=== PATIENT | female | born 1950 | race Caucasian/White ===

== ENCOUNTER 2016-10-04 22:52 | Inpatient (IN) | payer OTHER ==
[~2016-10-04] VITALS: Ht 165.1 cm; Wt 76.8 kg
[~2016-10-04 22:52] MED LIST: ACET-1175 PO; AMLO10TA4 PO; APIX1TAB3 PO; ATV/1 PO; BENZ2TAB6 PO; BISA10SU3 PR; CHOL20009 PO; CITA20TA9 PO; CLC100X PO; CRAN1CAP6 PO; DIVA125C PO; ESTCR TOP; FLUT0.0529 NAE; MAGNSUS5 PO; POLY1POW2 PO; POLY99.0 OPB; QUET1TAB34 PO; ROPI0.25 PO; SENN-61 PO; SODIENE PR; SORB1SOL2 PO; SUPPLEMENT SHAKE
[2016-10-04] MEDS ORDERED: SODIUM CHLORIDE 0.9% 1000ML 1,000 ML IV STA (23:05)
[2016-10-04] MEDS ORDERED: SODIUM CHLORIDE 0.9% 500ML 500 ML IV STA (23:05)
[2016-10-04 23:39] LABS: BASO % 0.1 %; BASO ABS # 0.01 K/uL (0-0.2); COMPLETE YES; EOS % 0.5 %; HEMATOCRIT 35.2 % (37-47); IG% 0.3 %; LYMPH % 15.9 %; LYMPH ABS # 1.37 K/uL (1.2-3.4); MEAN CELL VOLUME 89.3 fL (80-100); MEAN CORPUSCULAR HEMOGLOBIN 30.2 pg (25-34); MEAN CORPUSCULAR HGB CONC 33.8 g/dl (32-36); MEAN PLATELET VOLUME 10.7 fL (7.4-10.4); MONO % 10.4 %; NEUT % 72.8 %; PLATELET COUNT 183 K/uL (130-400); RED BLOOD COUNT 3.94 M/uL (4.2-5.4); WHITE BLOOD COUNT 8.63 K/uL (4.8-10.8)
--- NOTE | 2016-10-04 23:45 | EMERGENCY ROOM VISIT NOTE ---
ED Visit Note First contact with patient: 23:06 I have seen and examined this patient with Elin Back and generally agree with the treatment plan as discussed. Problem List Medical Problems: (1) Confusion Status: Chronic (2) COPD (chronic obstructive pulmonary disease) Status: Chronic (3) Diabetes Status: Chronic (4) GERD (gastroesophageal reflux disease) Status: Chronic (5) Hypertension Status: Chronic (6) Hypolipidemia Status: Chronic (7) Schizoaffective disorder Status: Chronic Current/Historical Medications Scheduled Amlodipine Besylate (Norvasc), 10 MG PO DAILY Apixaban (Eliquis), 5 MG PO BID Benztropine Mesylate (Benztropine Mesylate), 1 MG PO BID Cholecalciferol (Vitamin D), 2,000 INTER.UNIT PO DAILY Citalopram Hydrobromide (Celexa), 20 MG PO DAILY Cranberry (Vaccinium Macrocarp (Cranberry), 250 MG PO BID Divalproex Sodium (Depakote Sprinkle), 250 MG PO TID Docusate Sodium (Colace), 100 MG PO BID Estradiol Vaginal (Estrace), 1 APPLN TOP MWF Fluticasone Propionate (Nasal) (Flonase), 1 SPRAY HENRRY HS Lorazepam (Ativan), 1 MG PO TID Polyethylene Glycol 3350 (Bulk (Polyethylene Glycol 3350), 17 GM PO DAILY Polyvinyl Alcohol (Artificial Tears), 1 DROP OPB QID Quetiapine Fumarate (Seroquel), 100 MG PO TID Ropinirole Hydrochloride (Requip), 0.25 MG PO BID Senna (Senokot), 17.6 MG PO BID Sorbitol (Sorbitol), 30 ML PO BID [Supplement Shake], TID Scheduled PRN Acetaminophen (Tylenol), 650 MG PO Q6H PRN for Mild Pain/Elevated Temp Bisacodyl (Dulcolax), 1 SUPP NC UD PRN for Constipation Magnesium Hydroxide (Milk Of Magnesia), 30 ML PO UD PRN for Constipation Sodium Phosphate/Biphosphate (Fleet Enema), 1 EA NC UD PRN for Constipation Allergies Coded Allergies: No Known Allergies (Unverified , 06/25/16) Vital Signs Date Time Temp Pulse Resp B/P Pulse Ox O2 Delivery O2 Flow Rate FiO2 10/04/16 23:23 Room Air 10/04/16 23:05 37.1 89 24 117/66 94 Room Air Laboratory Results 10/04/16 23:20 Red Blood Count 3.94, Mean Corpuscular Volume 89.3, Mean Corpuscular Hemoglobin 30.2, Mean Corpuscular Hemoglobin Concent 33.8, Mean Platelet Volume 10.7, Neutrophils (%) (Auto) 72.8, Lymphocytes (%) (Auto) 15.9, Monocytes (%) (Auto) 10.4, Eosinophils (%) (Auto) 0.5, Basophils (%) (Auto) 0.1, Neutrophils # (Auto ) 6.28, Lymphocytes # (Auto) 1.37, Monocytes # (Auto) 0.90, Eosinophils # (Auto ) 0.04, Basophils # (Auto) 0.01 Test 10/04/16 23:05 10/04/16 23:20 10/04/16 23:25 Creatine Kinase MB Ratio (0-3.0) White Blood Count 8.63 K/uL (4.8-10.8) Red Blood Count 3.94 M/uL (4.2-5.4) Hemoglobin 11.9 g/dL (12.0-16.0) Hematocrit 35.2 % (37-47) Mean Corpuscular Volume 89.3 fL (80-100) Mean Corpuscular Hemoglobin 30.2 pg (25-34) Mean Corpuscular Hemoglobin Concent 33.8 g/dl (32-36) Platelet Count 183 K/uL (130-400) Mean Platelet Volume 10.7 fL (7.4-10.4) Neutrophils (%) (Auto) 72.8 % Lymphocytes (%) (Auto) 15.9 % Monocytes (%) (Auto) 10.4 % Eosinophils (%) (Auto) 0.5 % Basophils (%) (Auto) 0.1 % Neutrophils # (Auto) 6.28 K/uL (1.4-6.5) Lymphocytes # (Auto) 1.37 K/uL (1.2-3.4) Monocytes # (Auto) 0.90 K/uL (0.11-0.59) Eosinophils # (Auto) 0.04 K/uL (0-0.5) Basophils # (Auto) 0.01 K/uL (0-0.2) RDW Standard Deviation 46.6 fL (36.4-46.3) RDW Coefficient of Variation 14.2 % (11.5-14.5) Immature Granulocyte % (Auto) 0.3 % Immature Granulocyte # (Auto) 0.03 K/uL (0.00-0.02) Bedside Lactic Acid Venous 1.70 mmol/L (0.90-1.70) Departure Information Referrals Quinton Owens D.O. (PCP) Patient Instructions [facility]
[2016-10-04 23:49] LABS: PARTIAL THROMBOPLASTIN RATIO 1.2; PROTHROMBIN TIME (PATIENT) 11.1 SECONDS (9.0-12.0)
[2016-10-05 00:04] LABS: ALT/SGPT 13 U/L (12-78); AST/SGOT 14 U/L (15-37); BLOOD UREA NITROGEN 22 mg/dl (7-18); BUN/CREATININE RATIO 28.1 (10-20); CALCIUM 8.6 mg/dl (8.5-10.1); CARBON DIOXIDE 27 mmol/L (21-32); CHLORIDE 109 mmol/L (98-107); CREATININE 0.77 mg/dl (0.60-1.20); GLUCOSE 204 mg/dl (70-99); MAGNESIUM 2.2 mg/dl (1.8-2.4); POTASSIUM 3.6 mmol/L (3.5-5.1); SODIUM 146 mmol/L (136-145)
[2016-10-05] MEDS ORDERED: CITA10TA4 PO (00:09)
[2016-10-05] MEDS ORDERED: QUET1TAB32 PO (00:12)
[2016-10-05] MEDS ORDERED: NF406 PO (00:14)
[2016-10-05 00:15] LABS: ALB/GLOB RATIO 0.6 (0.9-2); ALKALINE PHOSPHATASE 94 U/L (45-117)
[2016-10-05] MEDS ORDERED: CRAN1TAB3 PO (00:18)
[2016-10-05] MEDS ORDERED: APIX1TAB3 PO (00:20)
[2016-10-05 01:24] LABS: MANUAL MICROSCOPIC REQUIRED? YES; URINE APPEARANCE CLOUDY (CLEAR); URINE BILIRUBIN NEG (NEG); URINE COLOR RED; URINE NITRITE NEG (NEG); UROBILINOGEN NEG (NEG)
[2016-10-05 01:44] LABS: REVIEW REQ? NO; SULFASALICYLIC ACID POS (NEG)
[2016-10-05 01:59] LABS: URINE RBC >30 /hpf (0-4)
[2016-10-05 02:07] LABS: URINE BACTERIA 4+ (NEG)
[2016-10-05 02:09] LABS: ZZURINE CULT IF INDIC CATH YES
[2016-10-05] MEDS ORDERED: CEFTRIAXONE SOD INJ 1 GM ADDVIAL IV STA (02:09)
[2016-10-05 02:23] LABS: INFLUENZA A PCR Neg for Influ A (NEG); INFLUENZA B PCR Neg for Influ B (NEG)
--- NOTE | 2016-10-05 02:44 | EMERGENCY ROOM VISIT NOTE ---
History First contact with patient: 23:06 Chief Complaint: ILLNESS Stated Complaint: AMS/SEPSIS, FR [facility] History of Present Illness The patient is a 66 year old female who presents to the Emergency Room with complaints of fever and altered mental status. Patient arrives [facility] via EMS. Patient is confused and unable to obtain history. At baseline patient is able to say yes and now. Tmax 102 at [facility] per EMS patient was given Tylenol just prior to arrival Review of Systems Unable to obtain secondary to altered mental status Past Medical/Surgical History Medical Problems: (1) Confusion (2) COPD (chronic obstructive pulmonary disease) (3) Diabetes (4) GERD (gastroesophageal reflux disease) (5) Hypertension (6) Hypolipidemia (7) Schizoaffective disorder (8) Sepsis Family History No pertinent family history Social History Smoking Status: Unknown if Ever Smoked Alcohol Use: none Drug Use: none Marital Status: Housing Status: [facility] Occupation Status: disabled Current/Historical Medications Scheduled Amlodipine Besylate (Norvasc), 10 MG PO DAILY Apixaban (Eliquis), 5 MG PO BID Benztropine Mesylate (Benztropine Mesylate), 1 MG PO BID Cholecalciferol (Vitamin D), 2,000 INTER.UNIT PO DAILY Citalopram Hydrobromide (Citalopram Hydrobromide), 5 MG PO DAILY Cranberry (Vaccinium Macrocarp (Cranberry), 450 MG PO BID Divalproex Sodium (Depakote Sprinkle), 250 MG PO TID Docusate Sodium (Colace), 100 MG PO BID Fluticasone Propionate (Nasal) (Flonase), 1 SPRAY HENRRY HS Lorazepam (Ativan), 1 MG PO TID Polyethylene Glycol 3350 (Bulk (Polyethylene Glycol 3350), 17 GM PO DAILY Polyvinyl Alcohol (Artificial Tears), 1 DROP OPB QID Quetiapine Fumarate (Seroquel), 100 MG PO BID Quetiapine Fumarate (Seroquel), 50 MG PO QAM Ropinirole Hydrochloride (Requip), 0.25 MG PO BID Senna (Senokot), 17.6 MG PO BID Sorbitol (Sorbitol), 30 ML PO DAILY [Supplement Shake], TID Scheduled PRN Acetaminophen (Tylenol), 650 MG PO Q6H PRN for Mild Pain/Elevated Temp Bisacodyl (Dulcolax), 1 SUPP CO UD PRN for Constipation Magnesium Hydroxide (Milk Of Magnesia), 30 ML PO UD PRN for Constipation Sodium Phosphate/Biphosphate (Fleet Enema), 1 EA CO UD PRN for Constipation Allergies Coded Allergies: No Known Allergies (Unverified , 06/25/16) Physical Exam Vital Signs Date Time Temp Pulse Resp B/P Pulse Ox O2 Delivery O2 Flow Rate FiO2 10/05/16 01:58 82 25 121/64 93 Room Air 10/05/16 01:28 98 26 127/66 96 Room Air 10/05/16 00:58 37.5 92 24 131/80 94 Room Air 10/05/16 00:29 82 18 133/72 93 Room Air 10/04/16 23:23 Room Air 10/04/16 23:05 89 10/04/16 23:05 37.1 89 24 117/66 94 Room Air Physical Exam VITALS: Vitals are noted on the nurse's note and reviewed by myself. Vital signs stable. GENERAL: White female sleeping arousable with sternal rub, in no acute distress , nondiaphoretic, well-developed well-nourished. SKIN: The skin was without rashes, erythema, edema, or bruising. There is no tenting of the skin. Capillary reflex less than 2 seconds. HEAD: Normocephalic atraumatic. EARS: External auditory canals clear, tympanic membranes pearly dumas without erythema or effusion bilaterally. EYES: Pupils equal round and reactive to light and accommodation. Conjunctivae without injection, sclerae without icterus. Extraocular movements intact. NOSE: Patent, turbinates without inflammation or discharge. MOUTH: Mucous membranes dry. Pharynx without erythema or exudate. Uvula midline. Airway patent. Tongue does not deviate. NECK: Supple without nuchal rigidity. No lymphadenopathy. No thyromegaly. Cervical spine is nontender. No JVD. HEART: Regular rate and rhythm LUNGS: Clear to auscultation bilaterally without wheezes, rales or rhonchi. No dullness to percussion. No retractions or accessory muscle use. ABDOMEN: Positive bowel sounds x 4. Normal tympanic percussion. Soft, nontender, without masses or organomegaly. Conte sign negative. No guarding or rebound tenderness. MUSCULOSKELETAL: No muscle atrophy, erythema, noted. NEURO: Patient was alert but not oriented to person place and time. Unable to follow commands Medical Decision & Procedures Laboratory Results 10/04/16 23:20 Red Blood Count 3.94, Mean Corpuscular Volume 89.3, Mean Corpuscular Hemoglobin 30.2, Mean Corpuscular Hemoglobin Concent 33.8, Mean Platelet Volume 10.7, Neutrophils (%) (Auto) 72.8, Lymphocytes (%) (Auto) 15.9, Monocytes (%) (Auto) 10.4, Eosinophils (%) (Auto) 0.5, Basophils (%) (Auto) 0.1, Neutrophils # (Auto ) 6.28, Lymphocytes # (Auto) 1.37, Monocytes # (Auto) 0.90, Eosinophils # (Auto ) 0.04, Basophils # (Auto) 0.01 10/04/16 23:20 Test 10/04/16 23:20 10/04/16 23:25 10/04/16 23:40 10/05/16 00:30 White Blood Count 8.63 K/uL (4.8-10.8) Red Blood Count 3.94 M/uL (4.2-5.4) Hemoglobin 11.9 g/dL (12.0-16.0) Hematocrit 35.2 % (37-47) Mean Corpuscular Volume 89.3 fL (80-100) Mean Corpuscular Hemoglobin 30.2 pg (25-34) Mean Corpuscular Hemoglobin Concent 33.8 g/dl (32-36) Platelet Count 183 K/uL (130-400) Mean Platelet Volume 10.7 fL (7.4-10.4) Neutrophils (%) (Auto) 72.8 % Lymphocytes (%) (Auto) 15.9 % Monocytes (%) (Auto) 10.4 % Eosinophils (%) (Auto) 0.5 % Basophils (%) (Auto) 0.1 % Neutrophils # (Auto) 6.28 K/uL (1.4-6.5) Lymphocytes # (Auto) 1.37 K/uL (1.2-3.4) Monocytes # (Auto) 0.90 K/uL (0.11-0.59) Eosinophils # (Auto) 0.04 K/uL (0-0.5) Basophils # (Auto) 0.01 K/uL (0-0.2) RDW Standard Deviation 46.6 fL (36.4-46.3) RDW Coefficient of Variation 14.2 % (11.5-14.5) Immature Granulocyte % (Auto) 0.3 % Immature Granulocyte # (Auto) 0.03 K/uL (0.00-0.02) Prothrombin Time 11.1 SECONDS (9.0-12.0) Prothromb Time International Ratio 1.0 (0.9-1.1) Activated Partial Thromboplast Time 31.0 SECONDS (21.0-31.0) Partial Thromboplastin Ratio 1.2 Anion Gap 10.0 mmol/L (3-11) Est Creatinine Clear Calc Drug Dose 70.5 ml/min Estimated GFR () 92.0 Estimated GFR (Non- 79.3 BUN/Creatinine Ratio 28.1 (10-20) Calcium Level 8.6 mg/dl (8.5-10.1) Magnesium Level 2.2 mg/dl (1.8-2.4) Total Bilirubin 0.3 mg/dl (0.2-1) Aspartate Amino Transf (AST/SGOT) 14 U/L (15-37) Alanine Aminotransferase (ALT/SGPT) 13 U/L (12-78) Alkaline Phosphatase 94 U/L (45-117) Total Creatine Kinase 485 U/L (26-192) Creatine Kinase MB < 0.5 ng/ml (0.5-3.6) Creatine Kinase MB Ratio (0-3.0) Troponin I < 0.015 ng/ml (0-0.045) Total Protein 6.4 gm/dl (6.4-8.2) Albumin 2.5 gm/dl (3.4-5.0) Globulin 3.9 gm/dl (2.5-4.0) Albumin/Globulin Ratio 0.6 (0.9-2) Thyroid Stimulating Hormone (TSH) 3.460 uIu/ml (0.300-4.500) Bedside Lactic Acid Venous 1.70 mmol/L (0.90-1.70) Urine Color RED Urine Appearance CLOUDY (CLEAR) Urine pH 8.0 (4.5-7.5) Urine Specific [place] 1.020 (1.000-1.030) Urine Protein 2+ (NEG) Urine Glucose (UA) NEG (NEG) Urine Ketones NEG (NEG) Urine Occult Blood 3+ (NEG) Urine Nitrite NEG (NEG) Urine Bilirubin NEG (NEG) Urine Urobilinogen NEG (NEG) Urine Leukocyte Esterase LARGE (NEG) Urine RBC >30 /hpf (0-4) Urine WBC 10-30 /hpf (0-5) Urine Epithelial Cells 10-20 /lpf (0-5) Urine Bacteria 4+ (NEG) Influenza Type A (RT-PCR) Neg for Influ A (NEG) Influenza Type B (RT-PCR) Neg for Influ B (NEG) Medications Administered Medications (Trade) Dose Ordered Sig/Emile Route Start Time Stop Time Status Last Admin Dose Admin Sodium Chloride 500 ml @ 999 mls/hr Q31M STAT IV 10/04/16 23:05 10/04/16 23:35 DC 10/04/16 23:05 999 MLS/HR Sodium Chloride (Nss 1000ml) 1,000 ml @ 125 mls/hr Q8H STAT IV 10/04/16 23:05 10/05/16 07:04 10/04/16 23:05 125 MLS/HR Ceftriaxone Sodium (Rocephin Inj) 1 gm NOW STAT IV 10/05/16 02:09 10/05/16 02:10 DC 10/05/16 02:25 1 GM ED Course Prior records/ancillary studies reviewed and summarized above. Nursing notes reviewed. Additional history obtained from EMS. The patient's history was concerning for altered mental status. Differential diagnosis: Etiologies such as metabolic, infection, hypoglycemia, electrolyte abnormalities , cardiac sources, intracerebral event, toxicologic, neurologic, as well as others were entertained. Physical examination: As above. ER treatment provided: IV Lock Normal saline hydration. rocephine On reassessment the patients mental status improved. Diagnostics interpretation by me: ECG: Normal sinus, normal intervals, no acute ST-T wave changes. Impression normal sinus rhythm interpreted by myself The labs revealed no leukocytosis. Urine concerning for infection and sent for culture. Prior urine culture reviewed and is sensitive to Rocephin Imaging studies: Head CT with no intracranial bleed per stat radiology Chest x-ray with no acute consolidation, pneumothorax or free air per my interpretation Given the above diagnostic work-up and treatment, this episode appears to be consistent with UTI and altered mental status.. Further treatment will be required. She was started on antibiotics. She is more confused than baseline. She is unable to answer questions. She'll be evaluated by medicine for possible admission Consultation: A consultation was placed with Dr Barrera, hospitalist. The case was discussed and diagnostics were reviewed. The patient was evaluated in the ER for further treatment. case reviewed with my Attending. Medical Decision As above Impression Primary Impression: UTI (urinary tract infection) Additional Impression: Altered mental status Departure Information Dispostion Being Evaluated By Hospitalist Condition FAIR Referrals Quinton Owens D.O. (PCP) Patient Instructions [facility] Problem Qualifiers Primary Impression: UTI (urinary tract infection) Urinary tract infection type: acute cystitis Hematuria presence: with hematuria Qualified Codes: N30.01 - Acute cystitis with hematuria Additional Impression: Altered mental status Altered mental status type: unspecified Qualified Codes: R41.82 - Altered mental status, unspecified
[2016-10-05] MEDS ORDERED: FLUT0.15 NAE (02:56)
[2016-10-05] MEDS ORDERED: DOCU-94 PO (02:57)
[2016-10-05] MEDS ORDERED: ALUMINUM/MAGNESIUM/SIMETH (MAALOX MAX) 30 ML UDC PO PRN (06:30)
[2016-10-05] MEDS ORDERED: ONDANSETRON INJ 2 MG/ML 2 ML VIAL IV PRN (06:30)
[2016-10-05] MEDS ORDERED: ACETAMINOPHEN 325 MG TAB PO PRN (06:30)
[2016-10-05] MEDS ORDERED: MAGNESIUM HYDROXIDE SUSP 30 ML UDC PO PRN (06:30)
[2016-10-05] MEDS ORDERED: POLYETHYLENE (MIRALAX) 17 GM PACK PO PRN (06:30)
[2016-10-05] MEDS ORDERED: BISACODYL 10 MG SUPP PR PRN (06:30)
--- NOTE | 2016-10-05 06:36 | DIAGNOSTIC IMAGING REPORT ---
CHEST ONE VIEW PORTABLE CLINICAL HISTORY: Sepsis ALTERED MENTAL STATUS COMPARISON STUDY: 06/25/2016 FINDINGS: The cardiomediastinal contours remain stable. There are calcified hilar/mediastinal lymph nodes. There is a calcified left lower lobe granuloma. There is mild basilar interstitial thickening, unchanged from the prior study. There is no acute parenchymal consolidation. There is no failure. There are no pleural effusions.[ IMPRESSION: No active disease in the chest. Electronically signed by: Rohith Rocha M.D. 10/05/2016 6:34 AM Dictated Date/Time: 10/05/2016 6:33 AM
--- NOTE | 2016-10-05 06:54 | History and Physical ---
History & Physical Date & Time of Service: Oct 05, 2016 at 06:34 Chief Complaint: Ams/Sepsis, Fr [facility] Primary Care Physician: Quinton Owens D.O. History of Present Illness Source: patient 66 y/o F w/Hx Schizoaffective disorder, dementia, recurrent UTIs, DM2 - presents from a care facility where she was noted to be febrile and progressively lethargic and confused. She cannot contribute to the HPI meaningfully however she showed some improvement after receiving fluids and antibiotics in the ER. Her UA is strongly (+). She was recently admitted with a similar presentation 06/29. 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 10) CKD 1 11) Recurrent UTIs - urosepsis 06/29 Family History No pertinent family history Cannot obtain Social History Smoking Status: Unknown if Ever Smoked Drug Use: none Marital Status: Housing status: [facility] Occupational Status: disabled Immunizations History of Influenza Vaccine: Yes Influenza Vaccine Date: Jun 24, 2012 History of Tetanus Vaccine?: Unknown History of Pneumococcal: Yes History of Hepatitis B Vaccine: No Multi-Drug Resistant Organisms History of MDRO: Yes Type of MDRO: MRSA Allergies Coded Allergies: No Known Allergies (Unverified , 06/25/16) Home Medications Scheduled Amlodipine Besylate (Norvasc), 10 MG PO DAILY Apixaban (Eliquis), 5 MG PO BID Benztropine Mesylate (Benztropine Mesylate), 1 MG PO BID Cholecalciferol (Vitamin D), 2,000 INTER.UNIT PO DAILY Citalopram Hydrobromide (Citalopram Hydrobromide), 5 MG PO DAILY Cranberry (Vaccinium Macrocarp (Cranberry), 450 MG PO BID Divalproex Sodium (Depakote Sprinkle), 250 MG PO TID Docusate Sodium (Colace), 100 MG PO BID Fluticasone Propionate (Nasal) (Flonase Allergy Relief), 1 SPRAY HENRRY HS Lorazepam (Ativan), 1 MG PO TID Polyethylene Glycol 3350 (Bulk (Polyethylene Glycol 3350), 17 GM PO DAILY Polyvinyl Alcohol (Artificial Tears), 1 DROP OPB QID Quetiapine Fumarate (Seroquel), 100 MG PO BID Quetiapine Fumarate (Seroquel), 50 MG PO QAM Ropinirole Hydrochloride (Requip), 0.25 MG PO BID Senna (Senokot), 17.6 MG PO BID Sorbitol (Sorbitol), 30 ML PO DAILY [Supplement Shake], TID Scheduled PRN Acetaminophen (Tylenol), 650 MG PO Q6H PRN for Mild Pain/Elevated Temp Bisacodyl (Dulcolax), 1 SUPP MS UD PRN for Constipation Sodium Phosphate/Biphosphate (Fleet Enema), 1 EA MS UD PRN for Constipation Review of Systems Cannot obtain meaningful information - denies all symptoms - presentation as per HPI Physical Exam Vital Signs Date Time Temp Pulse Resp B/P Pulse Ox O2 Delivery O2 Flow Rate FiO2 10/05/16 05:59 78 25 147/68 93 Room Air 10/05/16 05:28 83 26 101/76 95 Room Air 10/05/16 04:58 81 23 146/71 95 Room Air 10/05/16 04:30 82 20 136/70 94 Room Air 10/05/16 03:58 85 25 144/69 92 Room Air 10/05/16 03:55 81 23 143/73 93 Room Air 10/05/16 03:00 83 10/05/16 02:28 85 24 124/74 93 Room Air 10/05/16 01:58 82 25 121/64 93 Room Air 10/05/16 01:28 98 26 127/66 96 Room Air 10/05/16 00:58 37.5 92 24 131/80 94 Room Air 10/05/16 00:29 82 18 133/72 93 Room Air 10/04/16 23:23 Room Air 10/04/16 23:05 89 10/04/16 23:05 37.1 89 24 117/66 94 Room Air General Appearance: no apparent distress, + pertinent finding (Confused elderly female - cooperative and in no distress) Head: normocephalic, atraumatic Eyes: normal inspection ENT: pharynx normal, + pertinent finding (Does not have any teeth) Neck: supple, no JVD Respiratory/Chest: chest non-tender, lungs clear, normal breath sounds Cardiovascular: regular rate, rhythm, no gallop, no JVD Abdomen/GI: normal bowel sounds, non tender, soft Back: normal inspection, no CVA tenderness Extremities/Musculoskelatal: + pertinent finding (Venous staiss changes and mild LE edema) Neurologic/Psych: + pertinent finding (She is disoriented but can obey simple commands and does not exhibut any obvious focal defecits) Skin: normal color, warm/dry, no rash Diagnostics Laboratory Results Results Past 24 Hours Test 10/04/16 23:20 10/04/16 23:25 10/04/16 23:40 10/05/16 00:30 Range/Units White Blood Count 8.63 4.8-10.8 K/uL Red Blood Count 3.94 4.2-5.4 M/uL Hemoglobin 11.9 12.0-16.0 g/dL Hematocrit 35.2 37-47 % Mean Corpuscular Volume 89.3 80-100 fL Mean Corpuscular Hemoglobin 30.2 25-34 pg Mean Corpuscular Hemoglobin Concent 33.8 32-36 g/dl Platelet Count 183 130-400 K/uL Mean Platelet Volume 10.7 7.4-10.4 fL Neutrophils (%) (Auto) 72.8 % Lymphocytes (%) (Auto) 15.9 % Monocytes (%) (Auto) 10.4 % Eosinophils (%) (Auto) 0.5 % Basophils (%) (Auto) 0.1 % Neutrophils # (Auto) 6.28 1.4-6.5 K/uL Lymphocytes # (Auto) 1.37 1.2-3.4 K/uL Monocytes # (Auto) 0.90 0.11-0.59 K/uL Eosinophils # (Auto) 0.04 0-0.5 K/uL Basophils # (Auto) 0.01 0-0.2 K/uL RDW Standard Deviation 46.6 36.4-46.3 fL RDW Coefficient of Variation 14.2 11.5-14.5 % Immature Granulocyte % (Auto) 0.3 % Immature Granulocyte # (Auto) 0.03 0.00-0.02 K/uL Prothrombin Time 11.1 9.0-12.0 SECONDS Prothromb Time International Ratio 1.0 0.9-1.1 Activated Partial Thromboplast Time 31.0 21.0-31.0 SECONDS Partial Thromboplastin Ratio 1.2 Sodium Level 146 136-145 mmol/L Potassium Level 3.6 3.5-5.1 mmol/L Chloride Level 109 98-107 mmol/L Carbon Dioxide Level 27 21-32 mmol/L Anion Gap 10.0 3-11 mmol/L Blood Urea Nitrogen 22 7-18 mg/dl Creatinine 0.77 0.60-1.20 mg/dl Est Creatinine Clear Calc Drug Dose 70.5 ml/min Estimated GFR () 92.0 Estimated GFR (Non- 79.3 BUN/Creatinine Ratio 28.1 10-20 Random Glucose 204 70-99 mg/dl Calcium Level 8.6 8.5-10.1 mg/dl Magnesium Level 2.2 1.8-2.4 mg/dl Total Bilirubin 0.3 0.2-1 mg/dl Aspartate Amino Transf (AST/SGOT) 14 15-37 U/L Alanine Aminotransferase (ALT/SGPT) 13 12-78 U/L Alkaline Phosphatase 94 45-117 U/L Total Creatine Kinase 485 26-192 U/L Creatine Kinase MB < 0.5 0.5-3.6 ng/ml Creatine Kinase MB Ratio 0-3.0 Troponin I < 0.015 0-0.045 ng/ml Total Protein 6.4 6.4-8.2 gm/dl Albumin 2.5 3.4-5.0 gm/dl Globulin 3.9 2.5-4.0 gm/dl Albumin/Globulin Ratio 0.6 0.9-2 Thyroid Stimulating Hormone (TSH) 3.460 0.300-4.500 uIu/ml Bedside Lactic Acid Venous 1.70 0.90-1.70 mmol/L Urine Color RED Urine Appearance CLOUDY CLEAR Urine pH 8.0 4.5-7.5 Urine Specific [place] 1.020 1.000-1.030 Urine Protein 2+ NEG Urine Glucose (UA) NEG NEG Urine Ketones NEG NEG Urine Occult Blood 3+ NEG Urine Nitrite NEG NEG Urine Bilirubin NEG NEG Urine Urobilinogen NEG NEG Urine Leukocyte Esterase LARGE NEG Urine RBC >30 0-4 /hpf Urine WBC 10-30 0-5 /hpf Urine Epithelial Cells 10-20 0-5 /lpf Urine Bacteria 4+ NEG Influenza Type A (RT-PCR) Neg for Influ A NEG Influenza Type B (RT-PCR) Neg for Influ B NEG Test 10/05/16 03:55 Range/Units Valproic Acid (Depakene) Level 53 50-100 mcg/ml Microbiology Results 10/04/16 Blood Culture, Received Pending 10/04/16 Blood Culture, Received Pending 10/04/16 Urine Culture, Received Pending EKG Sinus - ant and inf Q wvs present - no evidence of acute ischemia Impression Assessment and Plan 66 y/o F w/Hx Schizoaffective disorder, dementia, recurrent UTIs, DM2 - presents from a care facility where she was noted to be febrile and progressively lethargic and confused. She cannot contribute to the HPI meaningfully however she showed some improvement after receiving fluids and antibiotics in the ER. Her UA is strongly (+). 1) UTI with AMS - showing improvement after IVF - Pt will be treated with Cefepime pending culture results as she was recently treated for a UTI in hospital and we do not have recent ID of offending organism. Spectrum can be narrowed accordingly when results are available. Cont IVF. 2) Dementia - Schizoaffective disorder - will be monitored on telemetry until mental status improves - cont psychoactive meds 3) DM - SS 4) COPD - breathing treatments continued - no evidence of exacerbation 5) Hx DVTs - cont Apixaban 6) Parkinsonism - cont Ropinirole 7) HTN - cont Norvasc DNR - Apixaban prophylaxis total time for this admit including review of outpt records, labs, meds, ekg - discussion with Pt and ER attending - 39 min Level of Care Telemetry Resuscitation Status DO NOT RESUSCITATE VTE Prophylaxis VTE Risk Assessment Done? Y/N: Yes Risk Level: Moderate Given or contraindicated: Other Anticoagulation
--- NOTE | 2016-10-05 07:24 | DIAGNOSTIC IMAGING REPORT ---
CT HEAD WITHOUT CONTRAST (CT) CLINICAL HISTORY: Acute change in mental status. Sepsis. COMPARISON STUDY: 04/27/2015 TECHNIQUE: Axial CT of the brain is performed from the vertex to the skull base. IV contrast was not administered for this examination. CT DOSE: 614.27 mGy.cm FINDINGS: No intra or extra-axial mass lesions are visualized. There is no CT evidence of acute cortical infarction. There is no evidence of midline shift. There is no acute hemorrhage. No calvarial fractures are visualized. There are patchy white matter hypodensities likely on a small vessel basis. There is mild ventricular dilatation, similar to the preceding study. There is no evidence of acute sinusitis IMPRESSION: 1. No acute intracranial findings 2. White matter disease and stable mild ventriculomegaly Electronically signed by: Rohith Rocha M.D. 10/05/2016 7:22 AM Dictated Date/Time: 10/05/2016 7:21 AM
[2016-10-05 07:30] VITALS: BP 144/97; PULSE 89; TEMP 36.8; O2SAT 94; Ht 165.1 cm; Wt 76.8 kg
[2016-10-05] MEDS ORDERED: GLUCAGON FOR INJ 1 MG VIAL SQ PRN (07:30)
[2016-10-05] MEDS ORDERED: GLUCOSE 10 TABS/TUBE PO PRN (07:30)
[2016-10-05] MEDS ORDERED: GLUCOSE 40% GEL 15 GM TUBE PO PRN (07:30)
[2016-10-05] MEDS ORDERED: DEXTROSE 50% 50 ML SYR IV PRN (07:30)
[2016-10-05 08:00] VITALS: BP 129/72; PULSE 92; TEMP 36.8; O2SAT 93
[2016-10-05] MEDS: INSULIN ASPART 100 UNITS/ML 3 ML PEN SC SCH ×4 (08:32→20:24)
[2016-10-05] MEDS: NSS + 20MEQ KCL 1000ML 1,000 ML IV SCH ×2 (08:33→15:57)
[2016-10-05] MEDS: CEFEPIME IV 1,000 MG in DEXTROSE 5% 100ML 100 ML IV SCH ×3 (10:04→23:28)
[2016-10-05] MEDS: ARTIFICIAL TEARS OP SOLN OPB SCH ×8 (10:04→20:24)
[2016-10-05] MEDS: CITALOPRAM 20 MG TAB PO SCH (10:05)
[2016-10-05] MEDS: DOCUSATE SODIUM 100 MG CAP PO SCH ×2 (10:05→20:21)
[2016-10-05] MEDS: AMLODIPINE BESYLATE 5 MG TAB PO SCH (10:06)
[2016-10-05] MEDS: APIXABAN 2.5 MG TAB PO SCH ×2 (10:06→20:22)
[2016-10-05] MEDS: DIVALPROEX SODIUM SPRINKLE 125 MG CAP PO SCH ×3 (10:06→20:19)
[2016-10-05] MEDS: QUETIAPINE FUMARATE 25 MG TAB PO SCH (10:07)
[2016-10-05] MEDS: SENNA 8.6 MG TAB PO SCH ×2 (10:07→20:21)
[2016-10-05] MEDS: CHOLECALCIFEROL 1000 INTER.UNIT TAB PO SCH (10:07)
[2016-10-05] MEDS: ROPINIROLE HCL 0.25 MG TAB PO SCH ×2 (10:07→20:19)
[2016-10-05] MEDS: BENZTROPINE MESYLATE 1 MG TAB PO SCH ×2 (10:08→20:23)
[2016-10-05] MEDS: LORAZEPAM 1 MG TAB PO SCH ×3 (10:09→20:18)
[2016-10-05 12:00] VITALS: BP 129/58; PULSE 91; TEMP 36.6; O2SAT 98
[2016-10-05] MEDS: QUETIAPINE FUMARATE 100 MG TAB PO SCH ×2 (15:57→20:20)
[2016-10-05 16:00] VITALS: BP 127/73; PULSE 81; TEMP 36.5; O2SAT 100
[2016-10-05 19:33] VITALS: BP 143/60; PULSE 89; O2SAT 99
[2016-10-05] MEDS: FLUTICASONE PROPIONATE NA SPR 16 GM BTL NAE SCH (20:24)
[2016-10-06] VITALS (8 sets, daily range): BP systolic 102–135; BP diastolic 53–82; PULSE 73–84; TEMP 36.3–36.9; O2SAT 96–99
[2016-10-06 06:39] LABS: BASO % 0.4 %; BASO ABS # 0.02 K/uL (0-0.2); COMPLETE YES; EOS % 4.5 %; HEMATOCRIT 31.9 % (37-47); IG% 0.2 %; LYMPH % 29.7 %; LYMPH ABS # 1.33 K/uL (1.2-3.4); MEAN CELL VOLUME 91.9 fL (80-100); MEAN CORPUSCULAR HGB CONC 32.6 g/dl (32-36); MEAN PLATELET VOLUME 10.6 fL (7.4-10.4); MONO % 12.1 %; NEUT % 53.1 %; PLATELET COUNT 154 K/uL (130-400); RED BLOOD COUNT 3.47 M/uL (4.2-5.4); WHITE BLOOD COUNT 4.48 K/uL (4.8-10.8)
[2016-10-06] MEDS: INSULIN ASPART 100 UNITS/ML 3 ML PEN SC SCH ×4 (07:00→20:27)
[2016-10-06 07:20] LABS: ALKALINE PHOSPHATASE 70 U/L (45-117); ALT/SGPT 11 U/L (12-78); AST/SGOT 8 U/L (15-37); BLOOD UREA NITROGEN 15 mg/dl (7-18); BUN/CREATININE RATIO 31.8 (10-20); CALCIUM 8.4 mg/dl (8.5-10.1); CARBON DIOXIDE 28 mmol/L (21-32); CHLORIDE 115 mmol/L (98-107); CREATININE 0.46 mg/dl (0.60-1.20); GLUCOSE 104 mg/dl (70-99); POTASSIUM 3.9 mmol/L (3.5-5.1); SODIUM 151 mmol/L (136-145)
--- NOTE | 2016-10-06 07:25 | Medical Student: [facility] ---
Med Student Progress Note Date of Service Oct 06, 2016. Subjective Pt evaluation today including: physical exam, chart review, lab review, review of studies Pt is a 66 year old female with a history of Schizoaffective disorder, Parkinson 's disease, dementia, and recurrent UTIs who is admitted for increased lethargy and confusion in the setting of a UTI. She remains disoriented and is not able to contribute any history. ROS is unobtainable secondary to her altered mental status and dementia. Home Medications Scheduled Amlodipine Besylate (Norvasc), 10 MG PO DAILY Apixaban (Eliquis), 5 MG PO BID Benztropine Mesylate (Benztropine Mesylate), 1 MG PO BID Cholecalciferol (Vitamin D), 2,000 INTER.UNIT PO DAILY Citalopram Hydrobromide (Citalopram Hydrobromide), 5 MG PO DAILY Cranberry (Vaccinium Macrocarp (Cranberry), 450 MG PO BID Divalproex Sodium (Depakote Sprinkle), 250 MG PO TID Docusate Sodium (Colace), 100 MG PO BID Fluticasone Propionate (Nasal) (Flonase Allergy Relief), 1 SPRAY HENRRY HS Lorazepam (Ativan), 1 MG PO TID Polyethylene Glycol 3350 (Bulk (Polyethylene Glycol 3350), 17 GM PO DAILY Polyvinyl Alcohol (Artificial Tears), 1 DROP OPB QID Quetiapine Fumarate (Seroquel), 100 MG PO BID Quetiapine Fumarate (Seroquel), 50 MG PO QAM Ropinirole Hydrochloride (Requip), 0.25 MG PO BID Senna (Senokot), 17.6 MG PO BID Sorbitol (Sorbitol), 30 ML PO DAILY [Supplement Shake], TID Scheduled PRN Acetaminophen (Tylenol), 650 MG PO Q6H PRN for Mild Pain/Elevated Temp Bisacodyl (Dulcolax), 1 SUPP [place] UD PRN for Constipation Sodium Phosphate/Biphosphate (Fleet Enema), 1 EA [place] UD PRN for Constipation Objective Vital Signs Date Time Temp Pulse Resp B/P Pulse Ox O2 Delivery O2 Flow Rate FiO2 10/06/16 04:00 Room Air 10/06/16 03:27 36.9 73 20 112/54 96 Room Air 10/06/16 00:25 36.4 76 22 102/56 98 Room Air 10/06/16 00:00 Room Air 10/05/16 20:00 Room Air 10/05/16 19:33 89 18 143/60 99 10/05/16 16:00 36.5 81 20 127/73 100 Room Air 10/05/16 16:00 Room Air 10/05/16 12:00 36.6 91 22 129/58 98 Room Air 10/05/16 12:00 Room Air 10/05/16 08:00 36.8 92 22 129/72 93 Room Air 10/05/16 08:00 Room Air 10/05/16 07:30 36.8 89 22 144/97 94 Room Air Physical Exam General Appearance: + pertinent finding (Elderly sleeping comfortably in bed, awakens to voice. Appears in no acute distress. Only oriented to person. Unable to follow simple commands. ) Eyes: bilateral eyes PERRL, bilateral eyes normal inspection ENT: + pertinent finding (Dry mucous membranes. Edentulous. ) Neck: no JVD, no carotid bruits, trachea midline Respiratory/Chest: lungs clear, normal breath sounds, no respiratory distress, no accessory muscle use Cardiovascular: regular rate, rhythm, no edema, no gallop, no JVD, no murmur Abdomen: normal bowel sounds, non tender, soft Extremities: no pedal edema, no calf tenderness, normal capillary refill, + pertinent finding (Chronic venous stasis changes of bilateral lower extremities. ) Neurologic/Psychiatric: alert, + disoriented, + pertinent finding (Oriented x 1. Unable to follow simple commands. No obvious focal deficits. ) Skin: normal color, no rash Laboratory Results Last 24 Hours Test 10/05/16 08:30 10/05/16 12:13 10/05/16 15:55 10/05/16 20:23 Bedside Glucose 142 mg/dl 141 mg/dl 125 mg/dl 124 mg/dl Test 10/06/16 06:07 10/06/16 07:03 White Blood Count 4.48 K/uL Red Blood Count 3.47 M/uL Hemoglobin 10.4 g/dL Hematocrit 31.9 % Mean Corpuscular Volume 91.9 fL Mean Corpuscular Hemoglobin 30.0 pg Mean Corpuscular Hemoglobin Concent 32.6 g/dl Platelet Count 154 K/uL Mean Platelet Volume 10.6 fL Neutrophils (%) (Auto) 53.1 % Lymphocytes (%) (Auto) 29.7 % Monocytes (%) (Auto) 12.1 % Eosinophils (%) (Auto) 4.5 % Basophils (%) (Auto) 0.4 % Neutrophils # (Auto) 2.38 K/uL Lymphocytes # (Auto) 1.33 K/uL Monocytes # (Auto) 0.54 K/uL Eosinophils # (Auto) 0.20 K/uL Basophils # (Auto) 0.02 K/uL RDW Standard Deviation 47.6 fL RDW Coefficient of Variation 14.3 % Immature Granulocyte % (Auto) 0.2 % Immature Granulocyte # (Auto) 0.01 K/uL Sodium Level 151 mmol/L Potassium Level 3.9 mmol/L Chloride Level 115 mmol/L Carbon Dioxide Level 28 mmol/L Anion Gap 8.0 mmol/L Blood Urea Nitrogen 15 mg/dl Creatinine 0.46 mg/dl Est Creatinine Clear Calc Drug Dose 120.0 ml/min Estimated GFR () 118.5 Estimated GFR (Non- 102.2 BUN/Creatinine Ratio 31.8 Random Glucose 104 mg/dl Calcium Level 8.4 mg/dl Magnesium Level 2.0 mg/dl Total Bilirubin 0.3 mg/dl Direct Bilirubin < 0.1 mg/dl Aspartate Amino Transf (AST/SGOT) 8 U/L Alanine Aminotransferase (ALT/SGPT) 11 U/L Alkaline Phosphatase 70 U/L Total Protein 5.5 gm/dl Albumin 2.0 gm/dl Bedside Glucose 101 mg/dl Medications Medications Administered Medications (Trade) Dose Ordered Sig/Emile Route Start Time Stop Time Status Last Admin Dose Admin Sodium Chloride 500 ml @ 999 mls/hr Q31M STAT IV 10/04/16 23:05 10/04/16 23:35 DC 10/04/16 23:05 999 MLS/HR Sodium Chloride (Nss 1000ml) 1,000 ml @ 125 mls/hr Q8H STAT IV 10/04/16 23:05 10/05/16 07:04 DC 10/04/16 23:05 125 MLS/HR Ceftriaxone Sodium 1 gm 1 gm NOW STAT IV 10/05/16 02:09 10/05/16 02:10 DC 10/05/16 02:25 1 GM Cefepime HCl/ Dextrose (Maxipime IV/D5 100ml) 106.25 ml @ 200 mls/ hr Q8H IV 10/05/16 08:00 10/15/16 07:44 10/05/16 23:28 200 MLS/HR Amlodipine Besylate (Norvasc Tab) 10 mg DAILY PO 10/05/16 09:00 11/04/16 08:59 10/05/16 10:06 10 MG Divalproex Sodium (Depakote Sprinkle Cap) 250 mg TID PO 10/05/16 09:00 11/04/16 08:59 10/05/16 20:19 250 MG Docusate Sodium (coLACE CAP) 100 mg BID PO 10/05/16 09:00 11/04/16 08:59 10/05/16 10:05 100 MG Fluticasone Propionate (Flonase Nasal [place]) 2 sprays HS HENRRY 10/05/16 21:00 11/04/16 20:59 10/05/16 20:24 2 SPRAYS Lorazepam (Ativan Tab) 1 mg TID PO 10/05/16 09:00 11/04/16 08:59 10/05/16 20:18 1 MG Quetiapine Fumarate (seroQUEL TAB) 50 mg QAM PO 10/05/16 09:00 11/04/16 08:59 10/05/16 10:07 50 MG Quetiapine Fumarate (seroQUEL TAB) 100 mg BID@1700,2100 PO 10/05/16 17:00 11/04/16 16:59 10/05/16 20:20 100 MG Ropinirole HCl (Requip Tab) 0.25 mg BID PO 10/05/16 09:00 11/04/16 08:59 10/05/16 20:19 0.25 MG Senna (Senokot Tab) 17.2 mg BID PO 10/05/16 09:00 11/04/16 08:59 10/05/16 20:21 17.2 MG Apixaban (Eliquis Tab) 5 mg BID PO 10/05/16 09:00 11/04/16 08:59 10/05/16 20:22 5 MG Benztropine Mesylate (Cogentin Tab) 1 mg BID PO 10/05/16 09:00 11/04/16 08:59 10/05/16 20:23 1 MG Cholecalciferol (Vitamin D Tab) 2,000 inter.unit DAILY PO 10/05/16 09:00 11/04/16 08:59 10/05/16 10:07 2,000 INTER.UNIT Citalopram Hydrobromide (celeXA TAB) 5 mg DAILY PO 10/05/16 09:00 11/04/16 08:59 10/05/16 10:05 5 MG Artificial Tears 1 drops 1 drops QID OPB 10/05/16 09:00 11/04/16 08:59 10/05/16 20:24 1 DROPS Potassium Chloride/Sodium Chloride (Nss + 20meq KCl 1000ml) 1,000 ml @ 100 mls/hr Q10H IV 10/05/16 08:00 10/06/16 03:59 DC 10/05/16 15:57 100 MLS/HR Assessment and Plan Assessment and Plan: Pt is a 66 year old female with a history of Schizoaffective disorder, Parkinson 's disease, dementia, and recurrent UTIs who is admitted for increased lethargy and confusion in the setting of a UTI. UTI/AMS - UA with evidence of infection, which is the likely source of her AMS. Urine cultures are positive for gram negative bacilli, most likely representing E. coli, although Pseudomonas is also considered given recent admission and she lives in care facility. She has a history of staghorn calculi on abd/pelvis CT from 02/13/16, but UA is negative for nitrites, making Proteus UTI less likely. No leukocytosis or fever, and normal lactic acid, so no evidence to suggest urosepsis at this point. Head CT showed white matter changes and stable mild ventriculomegaly, no acute findings. CXR showed no acute findings. - Continue Cefepime IV. - Continue to monitor daily CBC. - Blood cultures are pending. Hypernatremia - Na of 151, increased from 146 on admission. This could be secondary to the 1.5 L IVF. - Will transition the pt to oral fluids and recheck BMP daily. Schizoaffective disorder - Continue normal medications, including Depakote, citalopram, and quetiapine. - Will consider weaning the pt off of lorazepam 1 mg tid, as it could be contributing to her AMS. History of Type II DM - Last HbA1C was 5.9, and the pt is not currently on any antihyperglycemics. - Will continue to monitor blood sugar. - No need for insulin sliding scale at this time. Parkinson's disease - Continue Ropinirole and Benztropine. HTN - BP has been stable in the 100-140s/ 50-70s. Continue normal dose of Norvasc. DVT prophylaxis - Continue usual dose of apixaban 5 mg bid, which she is on for a Hx of DVT.
[2016-10-06] MEDS: LORAZEPAM 1 MG TAB PO SCH ×3 (09:00→19:49)
[2016-10-06] MEDS: ARTIFICIAL TEARS OP SOLN OPB SCH ×8 (09:12→19:49)
[2016-10-06] MEDS: AMLODIPINE BESYLATE 5 MG TAB PO SCH (09:12)
[2016-10-06] MEDS: BENZTROPINE MESYLATE 1 MG TAB PO SCH ×2 (09:12→19:49)
[2016-10-06] MEDS: QUETIAPINE FUMARATE 25 MG TAB PO SCH (09:13)
[2016-10-06] MEDS: CITALOPRAM 20 MG TAB PO SCH (09:13)
[2016-10-06] MEDS: ROPINIROLE HCL 0.25 MG TAB PO SCH ×2 (09:13→19:49)
[2016-10-06] MEDS: DOCUSATE SODIUM 100 MG CAP PO SCH ×2 (09:15→19:49)
[2016-10-06] MEDS: APIXABAN 2.5 MG TAB PO SCH ×2 (09:15→19:48)
[2016-10-06] MEDS: SENNA 8.6 MG TAB PO SCH ×2 (09:15→19:49)
[2016-10-06] MEDS: CHOLECALCIFEROL 1000 INTER.UNIT TAB PO SCH (09:15)
[2016-10-06] MEDS: DIVALPROEX SODIUM SPRINKLE 125 MG CAP PO SCH ×3 (09:16→19:49)
[2016-10-06] MEDS: POLYETHYLENE (MIRALAX) 17 GM PACK PO SCH (09:34)
[2016-10-06] MEDS: CEFEPIME IV 1,000 MG in DEXTROSE 5% 100ML 100 ML IV SCH ×2 (09:34→15:59)
--- NOTE | 2016-10-06 09:45 | Clinical Documentation Query ---
JENNY Whittington : CLINICAL DOCUMENTATION QUERY Patient is a 66 year old female admitted wiht progressive lethargy and confusion in the setting of a UTI. CT scan of her head ruled out acute intracranial pathology. She was noted to have exhibited improvement s/p administration of IVF and antibiotics while in the ER. Please clarify as clinically appropriate as this directly affects DRG assignment. Thank you. In your clinical opinion is this patient being managed for: ( x ) Metabolic encephalopathy secondary to UTI ( ) Other explanation of clinical findings (Please Explain) ( ) Unable to determine (Please Define) ( ) Need to Discuss ( ) Not Agree The medical record reflects the following clinical findings, treatment, and risk factors. Clinical Indicators: As above Treatment: CT scan of the head, IVF, IV antibiotics. Risk Factors: Age, gender, underlying cognitive disorders, infection Please clarify and document your clinical opinion in the progress notes and discharge summary. Terms such as "probable", "suspected", "likely", "questionable", "possible", or "still to be ruled out" are acceptable. IF IN AGREEMENT, YOU MUST DOCUMENT ABOVE DIAGNOSTIC STATEMENT IN DAILY PROGRESS NOTES AND DISCHARGE SUMMARY. This document is not part of the patient's record. Thank You, Rancho Back, YULIET [phone]
[2016-10-06 13:29] LABS: BUN/CREATININE RATIO 27.1 (10-20); CALCIUM 9.1 mg/dl (8.5-10.1); CREATININE 0.52 mg/dl (0.60-1.20); POTASSIUM 3.8 mmol/L (3.5-5.1)
--- NOTE | 2016-10-06 13:56 | Family Medicine Progress Note ---
Progress Note Date of Service Oct 06, 2016. Subjective Pt evaluation today including: conversation w/ patient Pain: unable to assess Patient has severe dementia, unable to assess ROS or complete appropriate subjective assessment Medications Medications Administered Medications (Trade) Dose Ordered Sig/Emile Route Start Time Stop Time Status Last Admin Dose Admin Sodium Chloride 500 ml @ 999 mls/hr Q31M STAT IV 10/04/16 23:05 10/04/16 23:35 DC 10/04/16 23:05 999 MLS/HR Sodium Chloride (Nss 1000ml) 1,000 ml @ 125 mls/hr Q8H STAT IV 10/04/16 23:05 10/05/16 07:04 DC 10/04/16 23:05 125 MLS/HR Ceftriaxone Sodium 1 gm 1 gm NOW STAT IV 10/05/16 02:09 10/05/16 02:10 DC 10/05/16 02:25 1 GM Cefepime HCl/ Dextrose (Maxipime IV/D5 100ml) 106.25 ml @ 200 mls/ hr Q8H IV 10/05/16 08:00 10/15/16 07:44 10/06/16 09:34 200 MLS/HR Amlodipine Besylate (Norvasc Tab) 10 mg DAILY PO 10/05/16 09:00 11/04/16 08:59 10/06/16 09:12 10 MG Divalproex Sodium (Depakote Sprinkle Cap) 250 mg TID PO 10/05/16 09:00 11/04/16 08:59 10/06/16 09:16 250 MG Docusate Sodium (coLACE CAP) 100 mg BID PO 10/05/16 09:00 11/04/16 08:59 10/06/16 09:15 100 MG Fluticasone Propionate (Flonase Nasal [place]) 2 sprays HS HENRRY 10/05/16 21:00 11/04/16 20:59 10/05/16 20:24 2 SPRAYS Lorazepam (Ativan Tab) 1 mg TID PO 10/05/16 09:00 11/04/16 08:59 10/05/16 20:18 1 MG Quetiapine Fumarate (seroQUEL TAB) 50 mg QAM PO 10/05/16 09:00 11/04/16 08:59 10/06/16 09:13 50 MG Quetiapine Fumarate (seroQUEL TAB) 100 mg BID@1700,2100 PO 10/05/16 17:00 11/04/16 16:59 10/05/16 20:20 100 MG Ropinirole HCl (Requip Tab) 0.25 mg BID PO 10/05/16 09:00 11/04/16 08:59 10/06/16 09:13 0.25 MG Senna (Senokot Tab) 17.2 mg BID PO 10/05/16 09:00 11/04/16 08:59 10/06/16 09:15 17.2 MG Apixaban (Eliquis Tab) 5 mg BID PO 10/05/16 09:00 11/04/16 08:59 10/06/16 09:15 5 MG Benztropine Mesylate (Cogentin Tab) 1 mg BID PO 10/05/16 09:00 11/04/16 08:59 10/06/16 09:12 1 MG Cholecalciferol (Vitamin D Tab) 2,000 inter.unit DAILY PO 10/05/16 09:00 11/04/16 08:59 10/06/16 09:15 2,000 INTER.UNIT Citalopram Hydrobromide (celeXA TAB) 5 mg DAILY PO 10/05/16 09:00 11/04/16 08:59 10/06/16 09:13 5 MG Artificial Tears 1 drops 1 drops QID OPB 10/05/16 09:00 11/04/16 08:59 10/06/16 09:12 1 DROPS Potassium Chloride/Sodium Chloride (Nss + 20meq KCl 1000ml) 1,000 ml @ 100 mls/hr Q10H IV 10/05/16 08:00 10/06/16 03:59 DC 10/05/16 15:57 100 MLS/HR Polyethylene (Miralax Powder Packet) 17 gm DAILY PO 10/06/16 09:00 11/05/16 08:59 10/06/16 09:34 17 GM Objective Vital Signs Date Time Temp Pulse Resp B/P Pulse Ox O2 Delivery O2 Flow Rate FiO2 10/06/16 10:55 36.9 81 20 130/82 96 Room Air 10/06/16 10:30 36.8 79 18 97 10/06/16 08:25 36.8 79 18 121/53 97 10/06/16 08:00 Room Air 10/06/16 04:00 Room Air 10/06/16 03:27 36.9 73 20 112/54 96 Room Air 10/06/16 00:25 36.4 76 22 102/56 98 Room Air 10/06/16 00:00 Room Air 10/05/16 20:00 Room Air 10/05/16 19:33 89 18 143/60 99 10/05/16 16:00 36.5 81 20 127/73 100 Room Air 10/05/16 16:00 Room Air Physical Exam General Appearance: WD/WN, no apparent distress Eyes: normal inspection ENT: normal ENT inspection Neck: supple Respiratory/Chest: no respiratory distress, no accessory muscle use, + decreased breath sounds (bilat bases) Cardiovascular: regular rate, rhythm, no murmur Abdomen: normal bowel sounds, non tender, soft, + distended (slightly distended ) Extremities: non-tender, no calf tenderness, + pedal edema (+1) Neurologic/Psychiatric: alert (however confused) Skin: normal color, warm/dry, no rash Lymphatic: no adenopathy Laboratory Results Results Past 24 Hours Test 10/05/16 15:55 10/05/16 20:23 10/06/16 06:07 10/06/16 07:03 Range/Units Bedside Glucose 125 124 101 70-90 mg/dl White Blood Count 4.48 4.8-10.8 K/uL Red Blood Count 3.47 4.2-5.4 M/uL Hemoglobin 10.4 12.0-16.0 g/dL Hematocrit 31.9 37-47 % Mean Corpuscular Volume 91.9 80-100 fL Mean Corpuscular Hemoglobin 30.0 25-34 pg Mean Corpuscular Hemoglobin Concent 32.6 32-36 g/dl Platelet Count 154 130-400 K/uL Mean Platelet Volume 10.6 7.4-10.4 fL Neutrophils (%) (Auto) 53.1 % Lymphocytes (%) (Auto) 29.7 % Monocytes (%) (Auto) 12.1 % Eosinophils (%) (Auto) 4.5 % Basophils (%) (Auto) 0.4 % Neutrophils # (Auto) 2.38 1.4-6.5 K/uL Lymphocytes # (Auto) 1.33 1.2-3.4 K/uL Monocytes # (Auto) 0.54 0.11-0.59 K/uL Eosinophils # (Auto) 0.20 0-0.5 K/uL Basophils # (Auto) 0.02 0-0.2 K/uL RDW Standard Deviation 47.6 36.4-46.3 fL RDW Coefficient of Variation 14.3 11.5-14.5 % Immature Granulocyte % (Auto) 0.2 % Immature Granulocyte # (Auto) 0.01 0.00-0.02 K/uL Sodium Level 151 136-145 mmol/L Potassium Level 3.9 3.5-5.1 mmol/L Chloride Level 115 98-107 mmol/L Carbon Dioxide Level 28 21-32 mmol/L Anion Gap 8.0 3-11 mmol/L Blood Urea Nitrogen 15 7-18 mg/dl Creatinine 0.46 0.60-1.20 mg/dl Est Creatinine Clear Calc Drug Dose 120.0 ml/min Estimated GFR () 118.5 Estimated GFR (Non- 102.2 BUN/Creatinine Ratio 31.8 10-20 Random Glucose 104 70-99 mg/dl Calcium Level 8.4 8.5-10.1 mg/dl Magnesium Level 2.0 1.8-2.4 mg/dl Total Bilirubin 0.3 0.2-1 mg/dl Direct Bilirubin < 0.1 0-0.2 mg/dl Aspartate Amino Transf (AST/SGOT) 8 15-37 U/L Alanine Aminotransferase (ALT/SGPT) 11 12-78 U/L Alkaline Phosphatase 70 45-117 U/L Total Protein 5.5 6.4-8.2 gm/dl Albumin 2.0 3.4-5.0 gm/dl Test 10/06/16 11:36 10/06/16 12:45 Range/Units Bedside Glucose 126 70-90 mg/dl Sodium Level 147 136-145 mmol/L Potassium Level 3.8 3.5-5.1 mmol/L Chloride Level 110 98-107 mmol/L Carbon Dioxide Level 26 21-32 mmol/L Anion Gap 11.0 3-11 mmol/L Blood Urea Nitrogen 14 7-18 mg/dl Creatinine 0.52 0.60-1.20 mg/dl Est Creatinine Clear Calc Drug Dose 106.1 ml/min Estimated GFR () 113.8 Estimated GFR (Non- 98.2 BUN/Creatinine Ratio 27.1 10-20 Random Glucose 110 70-99 mg/dl Calcium Level 9.1 8.5-10.1 mg/dl Assessment and Plan 66 y/o F w/Hx Schizoaffective disorder, dementia, recurrent UTIs, DM2 - presents from a care facility where she was noted to be febrile and progressively lethargic and confused. Gram negative bacillus in the UA. Previous infection in Nov was resistant to Ampicillin and Fluoroquinolones. Currently being covered with Cefepime until sensitivities return. UTI with AMS secondary to gram negative bacilli - Cefepime q 12 based on the results of sensitivities will deescalate antibiotics - patient is returning to [facility] so potential for a short course of IV antibiotics is available - Continue to monitor for S&S of AMS - stable- downgrade to medsur Hypernatremia most likely iatrogenic - patient received 2 L of NSS with KCL - most like iatrogenic as a repeat BMP revealed improvement - recheck in am Dementia- Schizoaffective Disorder - cont psychoactive drugs DM - - ISS H/O DVT - Apixaban HTN - Norvasc DVT Prophylaxis -Apixaban DNR Resident Physician Supervision Note: I interviewed and examined the patient. Discussed with Dr. Salas and agree with findings and plan as documented in the note. Any exceptions or clarifications are listed here: None Documented By: Quinton Owens very little meaningful HPI or ROS obtainable but no complaints, happy to hear she's close to being able to get out of hospital vitals noted, nad, breathing unlabored, no pallor metabolic encephalopathy - due to UTI on admission - has known longstanding staghorn calculus but would not tolerate nephrectomy - currently improving, continue cefepime pending final sensitivities hypernatremia - likely due to NSS as fluids - change fluids, f/u Continued [facility] stay due to: other Discharge planning: half-way facility
[2016-10-06] MEDS: QUETIAPINE FUMARATE 100 MG TAB PO SCH ×2 (19:31→22:18)
[2016-10-06] MEDS: FLUTICASONE PROPIONATE NA SPR 16 GM BTL NAE SCH (19:49)
[2016-10-07] MEDS: CEFEPIME IV 1,000 MG in DEXTROSE 5% 100ML 100 ML IV SCH (00:13)
--- NOTE | 2016-10-07 05:34 | Clinical Documentation Query ---
BRISEYDA Forbes : CLINICAL DOCUMENTATION QUERY Patient is a 66 year old female admitted wiht progressive lethargy and confusion in the setting of a UTI. CT scan of her head ruled out acute intracranial pathology. She was noted to have exhibited improvement s/p administration of IVF and antibiotics while in the ER. Please clarify as clinically appropriate as this directly affects DRG assignment. Thank you. In your clinical opinion is this patient being managed for: ( ) Metabolic encephalopathy secondary to UTI ( ) Other explanation of clinical findings (Please Explain) ( ) Unable to determine (Please Define) ( ) Need to Discuss ( ) Not Agree The medical record reflects the following clinical findings, treatment, and risk factors. Clinical Indicators: As above Treatment: CT scan of the head, IVF, IV antibiotics. Risk Factors: Age, gender, underlying cognitive disorders, infection Please clarify and document your clinical opinion in the progress notes and discharge summary. Terms such as "probable", "suspected", "likely", "questionable", "possible", or "still to be ruled out" are acceptable. IF IN AGREEMENT, YOU MUST DOCUMENT ABOVE DIAGNOSTIC STATEMENT IN DAILY PROGRESS NOTES AND DISCHARGE SUMMARY. This document is not part of the patient's record. Thank You, Rancho Back, YULIET [phone]
[2016-10-07] MEDS: INSULIN ASPART 100 UNITS/ML 3 ML PEN SC SCH ×4 (06:30→21:06)
[2016-10-07 07:01] VITALS: BP 118/75; PULSE 69; TEMP 36.4; O2SAT 99
[2016-10-07] MEDS: POLYETHYLENE (MIRALAX) 17 GM PACK PO SCH (08:00)
[2016-10-07 08:09] LABS: HEMATOCRIT 31.2 % (37-47); MEAN CELL VOLUME 90.2 fL (80-100); MEAN CORPUSCULAR HEMOGLOBIN 30.9 pg (25-34); MEAN CORPUSCULAR HGB CONC 34.3 g/dl (32-36); MEAN PLATELET VOLUME 10.5 fL (7.4-10.4); PLATELET COUNT 180 K/uL (130-400); RED BLOOD COUNT 3.46 M/uL (4.2-5.4)
[2016-10-07 08:42] LABS: BUN/CREATININE RATIO 31.9 (10-20); CALCIUM 8.8 mg/dl (8.5-10.1); CREATININE 0.42 mg/dl (0.60-1.20); POTASSIUM 3.7 mmol/L (3.5-5.1)
[2016-10-07] MEDS: LORAZEPAM 1 MG TAB PO SCH ×3 (10:03→19:21)
[2016-10-07] MEDS: CEFTRIAXONE SOD INJ 1 GM in DEXTROSE 5% ADD-VANTAGE 50ML 50 ML IV SCH (10:05)
[2016-10-07] MEDS: ARTIFICIAL TEARS OP SOLN OPB SCH ×8 (10:06→19:21)
[2016-10-07] MEDS: QUETIAPINE FUMARATE 25 MG TAB PO SCH (10:07)
[2016-10-07] MEDS: DOCUSATE SODIUM 100 MG CAP PO SCH ×2 (10:08→19:21)
[2016-10-07] MEDS: ROPINIROLE HCL 0.25 MG TAB PO SCH ×2 (10:08→19:20)
[2016-10-07] MEDS: CHOLECALCIFEROL 1000 INTER.UNIT TAB PO SCH (10:08)
[2016-10-07] MEDS: SENNA 8.6 MG TAB PO SCH ×2 (10:09→19:20)
[2016-10-07] MEDS: APIXABAN 2.5 MG TAB PO SCH ×2 (10:10→19:20)
[2016-10-07] MEDS: DIVALPROEX SODIUM SPRINKLE 125 MG CAP PO SCH ×3 (10:11→19:21)
[2016-10-07] MEDS: AMLODIPINE BESYLATE 5 MG TAB PO SCH (10:11)
[2016-10-07] MEDS: BENZTROPINE MESYLATE 1 MG TAB PO SCH ×2 (10:12→21:04)
[2016-10-07] MEDS: CITALOPRAM 20 MG TAB PO SCH (10:12)
--- NOTE | 2016-10-07 12:26 | Family Medicine Progress Note ---
Progress Note Date of Service Oct 07, 2016. Subjective Pt evaluation today including: physical exam, chart review, lab review very little meaningful conversation, unable to complete a through history and ROS does seem like she is doing well Medications Medications Administered Medications (Trade) Dose Ordered Sig/Emile Route Start Time Stop Time Status Last Admin Dose Admin Sodium Chloride 500 ml @ 999 mls/hr Q31M STAT IV 10/04/16 23:05 10/04/16 23:35 DC 10/04/16 23:05 999 MLS/HR Sodium Chloride (Nss 1000ml) 1,000 ml @ 125 mls/hr Q8H STAT IV 10/04/16 23:05 10/05/16 07:04 DC 10/04/16 23:05 125 MLS/HR Ceftriaxone Sodium 1 gm 1 gm NOW STAT IV 10/05/16 02:09 10/05/16 02:10 DC 10/05/16 02:25 1 GM Cefepime HCl/ Dextrose (Maxipime IV/D5 100ml) 106.25 ml @ 200 mls/ hr Q8H IV 10/05/16 08:00 10/07/16 07:47 DC 10/07/16 00:13 200 MLS/HR Amlodipine Besylate (Norvasc Tab) 10 mg DAILY PO 10/05/16 09:00 11/04/16 08:59 10/07/16 10:11 10 MG Divalproex Sodium (Depakote Sprinkle Cap) 250 mg TID PO 10/05/16 09:00 11/04/16 08:59 10/07/16 10:11 250 MG Docusate Sodium (coLACE CAP) 100 mg BID PO 10/05/16 09:00 11/04/16 08:59 10/07/16 10:08 100 MG Fluticasone Propionate (Flonase Nasal [place]) 2 sprays HS HENRRY 10/05/16 21:00 11/04/16 20:59 10/06/16 19:49 2 SPRAYS Lorazepam (Ativan Tab) 1 mg TID PO 10/05/16 09:00 11/04/16 08:59 10/07/16 10:03 1 MG Quetiapine Fumarate (seroQUEL TAB) 50 mg QAM PO 10/05/16 09:00 11/04/16 08:59 10/07/16 10:07 50 MG Quetiapine Fumarate (seroQUEL TAB) 100 mg BID@1700,2100 PO 10/05/16 17:00 11/04/16 16:59 10/06/16 22:18 100 MG Ropinirole HCl (Requip Tab) 0.25 mg BID PO 10/05/16 09:00 11/04/16 08:59 10/07/16 10:08 0.25 MG Senna (Senokot Tab) 17.2 mg BID PO 10/05/16 09:00 11/04/16 08:59 10/07/16 10:09 17.2 MG Apixaban (Eliquis Tab) 5 mg BID PO 10/05/16 09:00 11/04/16 08:59 10/07/16 10:10 5 MG Benztropine Mesylate (Cogentin Tab) 1 mg BID PO 10/05/16 09:00 11/04/16 08:59 10/07/16 10:12 1 MG Cholecalciferol (Vitamin D Tab) 2,000 inter.unit DAILY PO 10/05/16 09:00 11/04/16 08:59 10/07/16 10:08 2,000 INTER.UNIT Citalopram Hydrobromide (celeXA TAB) 5 mg DAILY PO 10/05/16 09:00 11/04/16 08:59 10/07/16 10:12 5 MG Artificial Tears 1 drops 1 drops QID OPB 10/05/16 09:00 11/04/16 08:59 10/07/16 12:07 1 DROPS Potassium Chloride/Sodium Chloride (Nss + 20meq KCl 1000ml) 1,000 ml @ 100 mls/hr Q10H IV 10/05/16 08:00 10/06/16 03:59 DC 10/05/16 15:57 100 MLS/HR Insulin Aspart (novoLOG ASPART) SLIDING SCALE G... ACHS SC 10/05/16 08:00 11/04/16 07:59 10/06/16 20:27 1 UNITS Polyethylene 17 gm 17 gm DAILY PO 10/06/16 09:00 11/05/16 08:59 10/06/16 09:34 17 GM Ceftriaxone Sodium/Dextrose (Rocephin Inj/ Dextrose Add-[place] 50ML) 50 ml @ 100 mls/hr DAILY@0800 IV 10/07/16 08:00 10/17/16 07:59 10/07/16 10:05 100 MLS/HR Objective Vital Signs Date Time Temp Pulse Resp B/P Pulse Ox O2 Delivery O2 Flow Rate FiO2 10/07/16 08:00 Room Air 10/07/16 07:01 36.4 69 18 118/75 99 Room Air 10/07/16 00:00 Room Air 10/06/16 23:32 36.3 78 16 135/79 98 Room Air 10/06/16 20:00 Room Air 10/06/16 16:00 99 Room Air 10/06/16 14:57 36.8 84 18 125/79 99 Room Air Physical Exam General Appearance: WD/WN, no apparent distress Eyes: normal inspection ENT: normal ENT inspection Neck: supple Respiratory/Chest: lungs clear, normal breath sounds, no respiratory distress, no accessory muscle use, + decreased breath sounds (bilat bases) Cardiovascular: regular rate, rhythm, no murmur Abdomen: normal bowel sounds, non tender, soft Extremities: non-tender, + pedal edema (+1 bilat), + pertinent finding (stasis dermatitis) Neurologic/Psychiatric: alert Skin: normal color, warm/dry, no rash Lymphatic: no adenopathy Laboratory Results Results Past 24 Hours Test 10/06/16 12:45 10/06/16 16:41 10/06/16 20:00 10/07/16 07:14 Range/Units Sodium Level 147 147 136-145 mmol/L Potassium Level 3.8 3.7 3.5-5.1 mmol/L Chloride Level 110 111 98-107 mmol/L Carbon Dioxide Level 26 27 21-32 mmol/L Anion Gap 11.0 9.0 3-11 mmol/L Blood Urea Nitrogen 14 13 7-18 mg/dl Creatinine 0.52 0.42 0.60-1.20 mg/dl Est Creatinine Clear Calc Drug Dose 106.1 131.4 ml/min Estimated GFR () 113.8 122.1 Estimated GFR (Non- 98.2 105.3 BUN/Creatinine Ratio 27.1 31.9 10-20 Random Glucose 110 124 70-99 mg/dl Calcium Level 9.1 8.8 8.5-10.1 mg/dl Bedside Glucose 169 173 70-90 mg/dl White Blood Count 3.50 4.8-10.8 K/uL Red Blood Count 3.46 4.2-5.4 M/uL Hemoglobin 10.7 12.0-16.0 g/dL Hematocrit 31.2 37-47 % Mean Corpuscular Volume 90.2 80-100 fL Mean Corpuscular Hemoglobin 30.9 25-34 pg Mean Corpuscular Hemoglobin Concent 34.3 32-36 g/dl RDW Standard Deviation 45.8 36.4-46.3 fL RDW Coefficient of Variation 13.9 11.5-14.5 % Platelet Count 180 130-400 K/uL Mean Platelet Volume 10.5 7.4-10.4 fL Test 10/07/16 07:36 10/07/16 11:28 Range/Units Bedside Glucose 130 134 70-90 mg/dl Assessment and Plan 66 y/o F w/Hx Schizoaffective disorder, dementia, recurrent UTIs, DM2 - presents from a care facility where she was noted to be febrile and progressively lethargic and confused. Gram negative bacillus in the UA. Previous infection in Nov was resistant to Ampicillin and Fluoroquinolones. Was covered by Cefepime but transitioned to Rocephin because of sensitivities metabolic encephalopathy secondary to UTI secondary to gram negative bacilli - Cefepime q 12 d/c and changed to Rocephin 1 G dailu - patient is returning to [facility] so potential for a short course of IV antibiotics is available - Continue to monitor for S&S of AMS - stable- downgrade to medsurg Hypernatremia most likely iatrogenic- improving - patient received 2 L of NSS with KCL - iatrogenic source - recheck in am Dementia- Schizoaffective Disorder - cont psychoactive drugs DM - - ISS H/O DVT - Apixaban HTN - Norvasc DVT Prophylaxis -Apixaban DNR Resident Physician Supervision Note: I interviewed and examined the patient. Discussed with Dr. Salas and agree with findings and plan as documented in the note. Any exceptions or clarifications are listed here: None Documented By: Quinton Owens no meaningful HPI or ROS. [facility], vitals noted, breathing unlabored, at/near baseline mentation UTI - improving, finish w ceftriaxone encephalopathy - due to above, improved. hypernatremia - improving anticipate return to SNF 10/08. Continued [facility] stay due to: other Discharge planning: detention facility
[2016-10-07 15:13] VITALS: BP 137/76; PULSE 81; TEMP 36.5; O2SAT 98
[2016-10-07] MEDS: QUETIAPINE FUMARATE 100 MG TAB PO SCH ×2 (16:52→19:21)
[2016-10-07] MEDS: FLUTICASONE PROPIONATE NA SPR 16 GM BTL NAE SCH (19:21)
[2016-10-08 00:06] VITALS: BP 104/63; PULSE 81; TEMP 36.5; O2SAT 98
[2016-10-08 06:57] VITALS: BP 125/73; PULSE 84; TEMP 36.8; O2SAT 96
[2016-10-08 08:03] LABS: HEMATOCRIT 33.2 % (37-47); MEAN CELL VOLUME 89.7 fL (80-100); MEAN CORPUSCULAR HEMOGLOBIN 29.7 pg (25-34); MEAN CORPUSCULAR HGB CONC 33.1 g/dl (32-36); MEAN PLATELET VOLUME 10.2 fL (7.4-10.4); PLATELET COUNT 202 K/uL (130-400); WHITE BLOOD COUNT 6.14 K/uL (4.8-10.8)
[2016-10-08 08:31] LABS: BUN/CREATININE RATIO 26.9 (10-20); CALCIUM 8.7 mg/dl (8.5-10.1); CREATININE 0.51 mg/dl (0.60-1.20); POTASSIUM 3.6 mmol/L (3.5-5.1)
[2016-10-08] MEDS: INSULIN ASPART 100 UNITS/ML 3 ML PEN SC SCH ×2 (08:31→12:30)
[2016-10-08] MEDS: CEFTRIAXONE SOD INJ 1 GM in DEXTROSE 5% ADD-VANTAGE 50ML 50 ML IV SCH (08:36)
[2016-10-08] MEDS: ARTIFICIAL TEARS OP SOLN OPB SCH ×4 (08:38→12:34)
[2016-10-08] MEDS: LORAZEPAM 1 MG TAB PO SCH ×2 (08:38→14:14)
[2016-10-08] MEDS: CITALOPRAM 20 MG TAB PO SCH (08:41)
[2016-10-08] MEDS: BENZTROPINE MESYLATE 1 MG TAB PO SCH (08:42)
[2016-10-08] MEDS: DOCUSATE SODIUM 100 MG CAP PO SCH (08:43)
[2016-10-08] MEDS: APIXABAN 2.5 MG TAB PO SCH (08:44)
[2016-10-08] MEDS: DIVALPROEX SODIUM SPRINKLE 125 MG CAP PO SCH ×2 (08:44→14:15)
[2016-10-08] MEDS: POLYETHYLENE (MIRALAX) 17 GM PACK PO SCH (08:44)
[2016-10-08] MEDS: AMLODIPINE BESYLATE 5 MG TAB PO SCH (08:45)
[2016-10-08] MEDS: ROPINIROLE HCL 0.25 MG TAB PO SCH (08:46)
[2016-10-08] MEDS: SENNA 8.6 MG TAB PO SCH (08:47)
[2016-10-08] MEDS: QUETIAPINE FUMARATE 25 MG TAB PO SCH (08:49)
[2016-10-08] MEDS: CHOLECALCIFEROL 1000 INTER.UNIT TAB PO SCH (08:50)
--- NOTE | 2016-10-08 09:58 | Discharge Instructions ---
Discharge Instructions Admission Reason for Admission: Altered Mental Status, Uti Discharge Discharge Diagnosis / Problem: UTI Discharge Goals Goal(s): Improve function, Increase independence, Improve disease control Activity Recommendations Activity Level: Up Ad Chrissy Therapies: Physical Therapy, Occupational Therapy, Speech Therapy Exercise/Sports Limitations: as tolerated . Additional Information Patient informed of condition: Yes Advance Directives: No DNR: Yes Level of Care: Skilled Communicable Disease: Yes (MRSA +) Prognosis: Stable Instructions / Follow-Up Instructions / Follow-Up 66 y/o F w/Hx Schizoaffective disorder, dementia, recurrent UTIs, DM2 - presented from a care facility where she was noted to be febrile and progressively lethargic and confused. Ecoli was cultured from the UA and patient was transitioned from Cefepime to Rocephin. She has been improving since antibiotics. Previous infection in Nov was resistant to Ampicillin and Fluoroquinolones. She was also noted to have some gargling while eating so we recommend a speech therapist evaluation at the SNF. metabolic encephalopathy secondary to UTI secondary to gram negative bacilli- resolved - Cefepime q 12 d/c and changed to Rocephin 1 G daily - Please continue Rocephin for 7 more days - Recommend swallow study in outpt setting Hypernatremia most likely iatrogenic- improving - patient received 2 L of NSS with KCL - iatrogenic source - recheck BMP in one week is recommended Dementia- Schizoaffective Disorder - cont psychoactive drugs H/O DVT - Apixaban HTN - Norvasc DVT Prophylaxis received -Apixaban DNR Current Hospital Diet Patient's current hospital diet: AHA Diet (Heart Healthy), Diabetes Type 2 Diet , Low Sodium Diet (2gm Na) Discharge Diet Recommended Diet: Diabetes Type 2 Diet Pending Studies Studies pending at discharge: no Laboratory Results Results Past 24 Hours Test 10/07/16 11:28 10/07/16 16:33 10/07/16 19:51 10/08/16 07:40 Range/Units Bedside Glucose 134 126 170 70-90 mg/dl White Blood Count 6.14 4.8-10.8 K/uL Red Blood Count 3.70 4.2-5.4 M/uL Hemoglobin 11.0 12.0-16.0 g/dL Hematocrit 33.2 37-47 % Mean Corpuscular Volume 89.7 80-100 fL Mean Corpuscular Hemoglobin 29.7 25-34 pg Mean Corpuscular Hemoglobin Concent 33.1 32-36 g/dl RDW Standard Deviation 45.3 36.4-46.3 fL RDW Coefficient of Variation 13.7 11.5-14.5 % Platelet Count 202 130-400 K/uL Mean Platelet Volume 10.2 7.4-10.4 fL Sodium Level 146 136-145 mmol/L Potassium Level 3.6 3.5-5.1 mmol/L Chloride Level 110 98-107 mmol/L Carbon Dioxide Level 27 21-32 mmol/L Anion Gap 9.0 3-11 mmol/L Blood Urea Nitrogen 14 7-18 mg/dl Creatinine 0.51 0.60-1.20 mg/dl Est Creatinine Clear Calc Drug Dose 108.2 ml/min Estimated GFR () 114.5 Estimated GFR (Non- 98.8 BUN/Creatinine Ratio 26.9 10-20 Random Glucose 107 70-99 mg/dl Calcium Level 8.7 8.5-10.1 mg/dl Test 10/08/16 07:41 Range/Units Bedside Glucose 107 70-90 mg/dl Medical Emergencies . Who to Call and When: Medical Emergencies: If at any time you feel your situation is an emergency, please call 911 immediately. . Non-Emergent Contact Non-Emergency issues call your: Primary Care Provider . . "Provider Documentation" section prepared by Soraida Salas. Core Measure Problem Core Measures: None
--- NOTE | 2016-10-08 13:30 | Discharge Summary ---
Discharge Summary Admission Date: Oct 05, 2016 at 06:22 Discharge Date: Oct 08, 2016 Discharge Disposition: half-way facility Principal Diagnosis: UTI Immunizations: Have You Had Influenza Vaccine: Yes Influenza Vaccine Date: Jun 24, 2012 History of Tetanus Vaccine?: Unknown History of Pneumococcal: Yes History of Hepatitis B Vaccine: No (Soraida Salas MD) Medication Reconciliation Continued Medications: Acetaminophen (Tylenol) 325 Mg Tab 650 MG PO Q6H PRN for Mild Pain/Elevated Temp NEEDED FOR MILD PAIN RATED OR FOR ELEVATED TEMPERATURE GREATER THAN 101 F. DO NOT EXCEED 3 GM APAP/24 HOURS. Amlodipine Besylate (Norvasc) 10 Mg Tab 10 MG PO DAILY HOLD THIS MEDICATION FOR APICAL HEART RATE LESS THAN 50 OR FOR SYSTOLIC BLOOD PRESSURE LESS THAN 100. Apixaban (Eliquis) 5 Mg Tab 5 MG PO BID Benztropine Mesylate (Benztropine Mesylate) 2 Mg Tab 1 MG PO BID, TAB Bisacodyl (Dulcolax) 10 Mg Sup 1 SUPP [place] UD PRN for Constipation, SUP NEEDED ON DAY 4 WITHOUT A BOWEL MOVEMENT. Cholecalciferol (Vitamin D) 2,000 Unit Tab 2000 INTER.UNIT PO DAILY Citalopram Hydrobromide (Citalopram Hydrobromide) 10 Mg Tab 5 MG PO DAILY, TAB Cranberry (Vaccinium Macrocarp (Cranberry) 450 Mg Tab 450 MG PO BID Divalproex Sodium (Depakote Sprinkle) 125 Mg Cap 250 MG PO TID Docusate Sodium (Colace) 100 Mg Cap 100 MG PO BID, CAP Fluticasone Propionate (Nasal) (Flonase Allergy Relief) 50 Mcg/Act Spr 1 SPRAY HENRRY HS Lorazepam (Ativan) 1 Mg Tab 1 MG PO TID Polyethylene Glycol 3350 (Bulk (Polyethylene Glycol 3350) 1 Pow Pow 17 GM PO DAILY, GM HOLD THIS MEDICATION FOR LOOSE STOOLS. Polyvinyl Alcohol (Artificial Tears) 1.4 % Caro 1 DROP OPB QID Quetiapine Fumarate (Seroquel) 100 Mg Tab 100 MG PO BID, TAB GIVE IN LATE AFTERNOON AND EVENING. Quetiapine Fumarate (Seroquel) 50 Mg Tab 50 MG PO QAM, TAB Ropinirole Hydrochloride (Requip) 0.25 Mg Tab 0.25 MG PO BID Senna (Senokot) 8.6 Mg Tab 17.6 MG PO BID, TAB Sodium Phosphate/Biphosphate (Fleet Enema) [place] 1 EA [place] UD PRN for Constipation, BTL IF AFTER 4 HOURS DULCOLAX SUPPOSITORY WAS INEFFECTIVE GIVE ONE ENEMA. Sorbitol (Sorbitol) 30 Ml/ Soln 30 ML PO DAILY [Supplement Shake] () TID Discharge Exam Unable to complete a ROS or history because of patient limited ability to converse coherently only oriented to self Physical Exam: General Appearance: WD/WN, no apparent distress Eyes: normal inspection ENT: normal ENT inspection Neck: supple Respiratory/Chest: lungs clear, normal breath sounds, no respiratory distress, no accessory muscle use Cardiovascular: regular rate, rhythm, no murmur Abdomen / GI: normal bowel sounds, non tender, soft, no organomegaly Extremities: no calf tenderness, + pertinent finding (stasis dermatitis bilat LE) Neurologic/Psychiatric: alert Skin: normal color, warm/dry, no rash Lymphatic: no adenopathy (Soraida Salas MD) Hospital Course 66 y/o F w/Hx Schizoaffective disorder, dementia, recurrent UTIs, DM2 - presented from a care facility where she was noted to be febrile and progressively lethargic and confused. Ecoli was cultured from the UA and patient was transitioned from Cefepime to Rocephin. She has been improving since antibiotics. Previous infection in Nov was resistant to Ampicillin and Fluoroquinolones. She was also noted to have some gargling while eating so we recommend a speech therapist evaluation at the SNF. metabolic encephalopathy secondary to UTI secondary to gram negative bacilli- resolved - Cefepime q 12 d/c and changed to Rocephin 1 G daily - Please continue Rocephin for 7 more days - Recommend swallow study in outpt setting Hypernatremia most likely iatrogenic- improving - patient received 2 L of NSS with KCL - iatrogenic source - recheck BMP in one week is recommended Dementia- Schizoaffective Disorder - cont psychoactive drugs H/O DVT - Apixaban HTN - Norvasc DVT Prophylaxis received -Apixaban DNR Total Time Spent: Less than 30 minutes This includes examination of the patient, discharge planning, medication reconciliation, and communication with other providers. (Soraida Salas MD) Resident Physician Supervision Note: I interviewed and examined the patient. Discussed with Dr. Salas and agree with findings and plan as documented in the note. Any exceptions or clarifications are listed here: None Documented By: Quinton Owens feeling ok. limited HPI and ROS due to baseline mentation. offers no complaints vitals noted, breathing unlabored, nad, baseline mentation metabolic encephalopathy due to UTI - improved. UTI - improved, finish rocephin hypernatremia - likely low reserve + sodium load stable for heartide Total Time Spent: Less than 30 minutes (Quinton Owens, D.O.) Discharge Instructions Please refer to the electronic Patient Visit Report (Discharge Instructions) for additional information. (Soraida Salas MD) Additional Copies To [facility]
[2016-10-08 14:14] VITALS: BP 125/73; PULSE 84; TEMP 36.8; O2SAT 96
== END 2016-10-08 14:55 | DRG 689 ==
LOC: ENRESERVDT → ENRESERVTM → EDBD 22:52 → C.EDC 22:55 → C.MSICU 10-05 06:22 → C.2T 10-05 18:31 → C.MSICU 10-05 19:06 → C.2E 10-05 19:17 → C.MS4W 10-06 10:46
PROVIDERS: ADMIT Internal Medicine; ATTEND Family Medicine
DX: N39.0 Urinary tract infection, site not specified (principal); G93.41 Metabolic encephalopathy; E87.0 Hyperosmolality and hypernatremia; K21.9 Gastro-esophageal reflux disease without esophagitis; F03.90 Unspecified dementia, unspecified severity, without behavioral disturbance, psychotic disturbance, mood disturbance, and anxiety; F25.9 Schizoaffective disorder, unspecified; E11.22 Type 2 diabetes mellitus with diabetic chronic kidney disease; I12.9 Hypertensive chronic kidney disease with stage 1 through stage 4 chronic kidney disease, or unspecified chronic kidney disease; N18.1 Chronic kidney disease, stage 1; G31.83 Neurocognitive disorder with Lewy bodies; Z66 Do not resuscitate; Z86.718 Personal history of other venous thrombosis and embolism; N20.0 Calculus of kidney; J44.9 Chronic obstructive pulmonary disease, unspecified

== ENCOUNTER 2016-10-19 09:12 | Emergency (ER) | payer OTHER ==
[~2016-10-19 09:12] MED LIST changes: +CITA10TA4 PO; -CITA20TA9 PO; -CLC100X PO; -CRAN1CAP6 PO; +CRAN1TAB3 PO; +DOCU-94 PO; -ESTCR TOP; -FLUT0.0529 NAE; +FLUT0.15 NAE; -MAGNSUS5 PO; +QUET1TAB32 PO
[2016-10-19 09:17] VITALS: TEMP 39.1
[2016-10-19] MEDS ORDERED: MULT-506 PO (09:24)
[2016-10-19] MEDS ORDERED: ACETAMINOPHEN 325 MG SUPP PR STA (09:31)
[2016-10-19 09:34] VITALS: O2SAT 91
[2016-10-19] MEDS ORDERED: SODIUM CHLORIDE 0.9% 1000ML 2,000 ML IV STA (09:56)
[2016-10-19] MEDS ORDERED: VANCOMYCIN INJ 1,000 MG in SODIUM CHLORIDE 0.9% 250ML 250 ML ONE (10:00)
[2016-10-19 10:06] LABS: HEMATOCRIT 42.4 % (37-47); MEAN CORPUSCULAR HEMOGLOBIN 30.3 pg (25-34); MEAN CORPUSCULAR HGB CONC 32.5 g/dl (32-36); MEAN PLATELET VOLUME 10.8 fL (7.4-10.4); PLATELET COUNT 306 K/uL (130-400); RED BLOOD COUNT 4.56 M/uL (4.2-5.4); WHITE BLOOD COUNT 14.71 K/uL (4.8-10.8)
--- NOTE | 2016-10-19 10:10 | DIAGNOSTIC IMAGING REPORT ---
CHEST ONE VIEW PORTABLE CLINICAL HISTORY: fever cough COMPARISON STUDY: 10/04/2016 FINDINGS: Small parenchymal infiltrate medial right cardiophrenic angle. Lungs otherwise appear clear. No evidence for cardiac enlargement. IMPRESSION: Small parenchymal infiltrate medial right base Electronically signed by: Abelardo Pelayo M.D. 10/19/2016 10:09 AM Dictated Date/Time: 10/19/2016 10:08 AM
[2016-10-19] MEDS ORDERED: PIPERACILLIN/TAZOBACTAM 4.5 GM/100ML D5W ONE (10:16)
[2016-10-19 10:18] LABS: INR 1.3 (0.9-1.1); PARTIAL THROMBOPLASTIN RATIO 1.2
[2016-10-19 10:19] LABS: ALT/SGPT 14 U/L (12-78); BLOOD UREA NITROGEN 23 mg/dl (7-18); BUN/CREATININE RATIO 27.5 (10-20); CALCIUM 8.8 mg/dl (8.5-10.1); CARBON DIOXIDE 26 mmol/L (21-32); CHLORIDE 119 mmol/L (98-107); CREATININE 0.83 mg/dl (0.60-1.20); GLUCOSE 162 mg/dl (70-99); MAGNESIUM 2.3 mg/dl (1.8-2.4); POTASSIUM 3.4 mmol/L (3.5-5.1); SODIUM 156 mmol/L (136-145)
[2016-10-19 10:20] LABS: ALB/GLOB RATIO 0.6 (0.9-2); ALKALINE PHOSPHATASE 85 U/L (45-117); AST/SGOT 17 U/L (15-37)
[2016-10-19] MEDS ORDERED: DAPTOmycin IV 500 MG in SODIUM CHLORIDE 0.9% 50ML 50 ML IV ONE (10:30)
[2016-10-19 10:31] LABS: URINE APPEARANCE TURBID (CLEAR); URINE BILIRUBIN NEG (NEG); URINE NITRITE NEG (NEG); URINE PH 5.5 (4.5-7.5); URINE SPECIFIC GRAVITY 1.017 (1.000-1.030); UROBILINOGEN NEG (NEG)
[2016-10-19 10:34] LABS: MANUAL MICROSCOPIC REQUIRED? NO; REVIEW REQ? YES; URINE COLOR AMBER
[2016-10-19 10:34] LABS: BASO % 0.1 %; BASO ABS # 0.02 K/uL (0-0.2); COMPLETE YES; IG% 0.3 %; LYMPH % 10.9 %; LYMPH ABS # 1.61 K/uL (1.2-3.4); MONO % 5.2 %; NEUT % 83.5 %
[2016-10-19 10:44] LABS: URINE EPITHELIAL CELL AUTO >30 /lpf (0-5)
[2016-10-19 10:45] LABS: URINE PATH CASTS 1-5 GRANULAR CASTS /lpf (0)
[2016-10-19] MEDS ORDERED: VANCOMYCIN 1GM/270ML NSS ONE (10:48)
--- NOTE | 2016-10-19 11:51 | Progress Note ---
Progress Note I am production coordinator for [facility] today, RN reported to me that patient was hypoxia, fever, she has baseline dementia, I agreed to send to ED ED physician call me after work up, pt has fever/leukocytosis, pneumonia, demential, hypernatremia, she got Zosyn , Dapto, iv abx, I was called to admit to send her back to ECF pt's living will is [employer] I called to Dot, pt's POA, discussed pt's conditions and care plan, Dot concerns Mariza's life quality has been very poor, would like to keep comfortable only, she feel no points to continue aggressive care in hospital, and Dot is sure pt is DNR, and [employer]. Dot is ok to have some ivf, and iv abx, otherwise comfort methods only, and don't need more blood tests, no more send back to emergency, I agreed I called to RN in ECF: ordered: levaquin 750 mg iv daily for 7 days 1/2 nss with 20meq kcl 75 ml/hr neb q6 hr scheculled, and ,q 2hr prn otherwise [employer] no labs but encourage plenty fluid intake
[2016-10-19] MEDS ORDERED: PIPERACILL/TAZOBAC IV 4.5 GM in DEXTROSE 5% 100ML 100 ML IV SCH (12:00)
--- NOTE | 2016-10-19 12:17 | EMERGENCY ROOM VISIT NOTE ---
History Report prepared by Zen: Rancho Jerry Under the Supervision of: Dr. Nils Jhaveri D.O. First contact with patient: 09:48 Chief Complaint: ILLNESS Stated Complaint: AMS, FEVER, SOB History of Present Illness The patient is a 66 year old female who presents to the Emergency Room with complaints of an episode of fever and altered mental status beginning today. The patient was brought from [facility]. The staff reported fever and decreased level of conscious for 2 days. At baseline she is alert but confused and somewhat combative. History is limited secondary to altered mental status. Source of History: alf notes History Limited By: AMS Onset: 2 days ago Position: other (global) Quality: other (fever; AMS) Timing: other (persistent) Review of Systems See HPI for pertinent positives & negatives. A total of 10 systems reviewed and were otherwise negative. Past Medical & Surgical Medical Problems: (1) Confusion (2) COPD (chronic obstructive pulmonary disease) (3) Diabetes (4) GERD (gastroesophageal reflux disease) (5) Hypertension (6) Hypolipidemia (7) Schizoaffective disorder (8) Sepsis (9) UTI (urinary tract infection) Family History No pertinent family history Social History Smoking Status: Unknown if Ever Smoked Alcohol Use: none Drug Use: none Marital Status: Housing Status: alf Occupation Status: disabled Current/Historical Medications Scheduled Amlodipine Besylate (Norvasc), 10 MG PO DAILY Apixaban (Eliquis), 5 MG PO BID Benztropine Mesylate (Benztropine Mesylate), 1 MG PO BID Cholecalciferol (Vitamin D), 2,000 INTER.UNIT PO DAILY Citalopram Hydrobromide (Citalopram Hydrobromide), 5 MG PO DAILY Cranberry (Vaccinium Macrocarp (Cranberry), 450 MG PO BID Divalproex Sodium (Depakote Sprinkle), 250 MG PO TID Docusate Sodium (Colace), 100 MG PO BID Fluticasone Propionate (Nasal) (Flonase Allergy Relief), 1 SPRAY HENRRY HS Lorazepam (Ativan), 1 MG PO TID Multivitamin (Multivitamin), 1 TAB PO DAILY Polyethylene Glycol 3350 (Bulk (Polyethylene Glycol 3350), 17 GM PO DAILY Polyvinyl Alcohol (Artificial Tears), 1 DROP OPB QID Quetiapine Fumarate (Seroquel), 100 MG PO BID Quetiapine Fumarate (Seroquel), 50 MG PO QAM Ropinirole Hydrochloride (Requip), 0.25 MG PO BID Senna (Senokot), 17.6 MG PO BID Sorbitol (Sorbitol), 30 ML PO DAILY [Supplement Shake], TID Scheduled PRN Acetaminophen (Tylenol), 650 MG PO Q6H PRN for Mild Pain/Elevated Temp Bisacodyl (Dulcolax), 1 SUPP NM UD PRN for Constipation Sodium Phosphate/Biphosphate (Fleet Enema), 1 EA NM UD PRN for Constipation Allergies Coded Allergies: No Known Allergies (Unverified , 10/19/16) Physical Exam Vital Signs Date Time Temp Pulse Resp B/P Pulse Ox O2 Delivery O2 Flow Rate FiO2 10/19/16 11:20 83 22 149/67 98 Nasal Cannula 6.0 10/19/16 10:11 94 22 128/76 94 Nasal Cannula 6.0 10/19/16 09:45 103 10/19/16 09:34 91 Nasal Cannula 6.0 10/19/16 09:34 91 Nasal Cannula 6.0 10/19/16 09:17 39.1 106 24 165/85 87 Room Air Physical Exam CONSTITUTIONAL/VITAL SIGNS: Reviewed / noted above. GENERAL: Chronically ill appearing. INTEGUMENTARY: Warm, dry, and [place]. HEAD: Normocephalic. EYES: without scleral icterus or trauma. ENT/OROPHARYNX: mucous membrane dry. LYMPHADENOPATHY/NECK: Is supple without lymphadenopathy or meningismus. RESPIRATORY: Lungs clear and equal. CARDIOVASCULAR: Regular rate and rhythm. GI/ABDOMEN: Soft and nontender. No organomegaly or pulsatile mass. No rebound or guarding. Normal bowel sounds. EXTREMITIES: Edema noted. BACK: No CVA tenderness. NEUROLOGICAL: Does not follow commands and has gross weakness in all four extremities. PSYCHIATRIC: normal affect. MUSCULOSKELETAL: Normally developed with good muscle tone. Medical Decision & Procedures ER Provider Diagnostic Interpretation: X ray results and stated below per my interpretation and radiology interpretation. CHEST ONE VIEW PORTABLE FINDINGS: Small parenchymal infiltrate medial right cardiophrenic angle. Lungs otherwise appear clear. No evidence for cardiac enlargement. IMPRESSION: Small parenchymal infiltrate medial right base Electronically signed by: Abelardo Pelayo M.D. 10/19/2016 10:09 AM Dictated Date/Time: 10/19/2016 10:08 AM Laboratory Results 10/19/16 09:45 Red Blood Count 4.56, Mean Corpuscular Volume 93.0, Mean Corpuscular Hemoglobin 30.3, Mean Corpuscular Hemoglobin Concent 32.5, Mean Platelet Volume 10.8, Neutrophils (%) (Auto) 83.5, Lymphocytes (%) (Auto) 10.9, Monocytes (%) (Auto) 5.2, Eosinophils (%) (Auto) 0.0, Basophils (%) (Auto) 0.1, Neutrophils # (Auto) 12.27, Lymphocytes # (Auto) 1.61, Monocytes # (Auto) 0.76, Eosinophils # (Auto) 0.00, Basophils # (Auto) 0.02 10/19/16 09:45 Test 10/19/16 00:00 10/19/16 09:45 Urine Color CANDICE Urine Appearance TURBID (CLEAR) Urine pH 5.5 (4.5-7.5) Urine Specific [place] 1.017 (1.000-1.030) Urine Protein 1+ (NEG) Urine Glucose (UA) NEG (NEG) Urine Ketones 1+ (NEG) Urine Occult Blood 3+ (NEG) Urine Nitrite NEG (NEG) Urine Bilirubin NEG (NEG) Urine Urobilinogen NEG (NEG) Urine Leukocyte Esterase MODERATE (NEG) Urine WBC (Auto) >30 /hpf (0-5) Urine RBC (Auto) >30 /hpf (0-4) Urine Hyaline Casts (Auto) 10-30 /lpf (0-5) Urine Epithelial Cells (Auto) >30 /lpf (0-5) Urine Bacteria (Auto) 1+ (NEG) Urine Pathogenic Casts 1-5 GRANULAR CASTS /lpf (0) White Blood Count 14.71 K/uL (4.8-10.8) Red Blood Count 4.56 M/uL (4.2-5.4) Hemoglobin 13.8 g/dL (12.0-16.0) Hematocrit 42.4 % (37-47) Mean Corpuscular Volume 93.0 fL (80-100) Mean Corpuscular Hemoglobin 30.3 pg (25-34) Mean Corpuscular Hemoglobin Concent 32.5 g/dl (32-36) Platelet Count 306 K/uL (130-400) Mean Platelet Volume 10.8 fL (7.4-10.4) Neutrophils (%) (Auto) 83.5 % Lymphocytes (%) (Auto) 10.9 % Monocytes (%) (Auto) 5.2 % Eosinophils (%) (Auto) 0.0 % Basophils (%) (Auto) 0.1 % Neutrophils # (Auto) 12.27 K/uL (1.4-6.5) Lymphocytes # (Auto) 1.61 K/uL (1.2-3.4) Monocytes # (Auto) 0.76 K/uL (0.11-0.59) Eosinophils # (Auto) 0.00 K/uL (0-0.5) Basophils # (Auto) 0.02 K/uL (0-0.2) RDW Standard Deviation 49.4 fL (36.4-46.3) RDW Coefficient of Variation 14.6 % (11.5-14.5) Immature Granulocyte % (Auto) 0.3 % Immature Granulocyte # (Auto) 0.05 K/uL (0.00-0.02) Red Blood Cell Morphology Unremarkable Prothrombin Time 14.0 SECONDS (9.0-12.0) Prothromb Time International Ratio 1.3 (0.9-1.1) Activated Partial Thromboplast Time 30.7 SECONDS (21.0-31.0) Partial Thromboplastin Ratio 1.2 Anion Gap 11.0 mmol/L (3-11) Estimated GFR () 84.0 Estimated GFR (Non- 72.5 BUN/Creatinine Ratio 27.5 (10-20) Calcium Level 8.8 mg/dl (8.5-10.1) Magnesium Level 2.3 mg/dl (1.8-2.4) Total Bilirubin 0.5 mg/dl (0.2-1) Aspartate Amino Transf (AST/SGOT) 17 U/L (15-37) Alanine Aminotransferase (ALT/SGPT) 14 U/L (12-78) Alkaline Phosphatase 85 U/L (45-117) Total Protein 6.9 gm/dl (6.4-8.2) Albumin 2.7 gm/dl (3.4-5.0) Globulin 4.2 gm/dl (2.5-4.0) Albumin/Globulin Ratio 0.6 (0.9-2) Laboratory results as stated above per my review. Medications Administered Medications (Trade) Dose Ordered Sig/Emile Route Start Time Stop Time Status Last Admin Dose Admin Acetaminophen 975 mg 975 mg NOW STAT NM 10/19/16 09:31 10/19/16 09:32 DC 10/19/16 09:31 975 MG Sodium Chloride 2,000 ml @ 999 mls/hr Q2H1M STAT IV 10/19/16 09:56 10/19/16 11:56 DC 10/19/16 09:56 999 MLS/HR Piperacillin Sod/ Tazobactam Sod/ Dextrose (Zosyn Iv/D5 100ml) 120 ml @ 200 mls/hr Q6 IV 10/19/16 12:00 11/02/16 11:59 10/19/16 10:21 200 MLS/HR Vancomycin HCl (Vancomycin 1gm/ 270ml Nss) 1 gm STK-MED ONCE .ROUTE 10/19/16 10:48 10/19/16 10:49 DC 10/19/16 10:50 1 GM ECG Indication: other (illness) Rate (beats per minute): 103 Rhythm: sinus tachycardia Findings: no acute ischemic change, no ectopy ED Course 0931: Ordered Acetaminophen 975 mg NM. 0950: Previous medical records were reviewed. The patient was evaluated in room A11B. A complete history and physical examination was performed. 0956: Ordered NSS 2,000 ml @ 999 mls/hr IV. 1000: Ordered Vancomycin HCl 1,000 mg/Sodium Chloride 270 ml @ 125 mls/hr Protocol IV. 1030: Daptomycin 500 mg/Sodium Chloride 60 ml @ 100 mls/hr IV. 1121: Discussed the patient's case with Dr. Joi Dennis. The patient will be evaluated for further treatment and disposition. 1200: Ordered Piperacillin Sod/Tazobactam Sod 4.5 gm/Dextrose 120 ml @ 200 mls/ hr IV. Medical Decision Differential includes viral illness, influenza, streptococcal pharyngitis, meningitis, pneumonia, sinusitis, UTI, pyelonephritis, otitis media. This is a 66-year-old female who presents to the ED with a chief complaint of confusion. The patient presents from the [facility]. She is unable to provide any history. She is not responding to commands. The patient has a temperature 39.1. 87% saturations on room air. She appears dehydrated with dry mucous membranes. Orthostatics count was 14.7. Sodium is 156. BUN is 23. Urine appears contaminated. A chest x-ray reveals a right base infiltrate. EKG shows a sinus tach. She was treated with IV fluids and IV antibiotics. I spoke with Dr. Ash about the patient. He also spoke with the patient's POA. They would like the patient be sent back to the alf and IV fluids and antibiotic. Given there. Consults Time Called: 1120 Consulting Physician: Dr. Joi Dennis Returned Call: 1121 Discussed the patient's case with Dr. Joi Dennis. The patient will be evaluated for further treatment and disposition. Impression Primary Impression: Hypernatremia Additional Impressions: Pneumonia Altered mental status Scribe Attestation The scribe's documentation has been prepared under my direction and personally reviewed by me in its entirety. I confirm that the note above accurately reflects all work, treatment, procedures, and medical decision making performed by me. Departure Information Dispostion Being Evaluated By Hospitalist Referrals Master Michelle (PCP) Patient Instructions My [facility] Additional Instructions Continue IV antibiotics and IV fluids at [facility]. Dr. Ash spoke with POA and desired IVF and ABX and comfort care at the [place]. Problem Qualifiers
[2016-10-19 14:27] VITALS: BP 134/78; PULSE 82; O2SAT 95
== END 2016-10-19 14:42 ==
LOC: EDBD 09:12 → C.EDA 09:13
DX: E87.0 Hyperosmolality and hypernatremia (principal); J44.0 Chronic obstructive pulmonary disease with (acute) lower respiratory infection; J18.9 Pneumonia, unspecified organism; R41.82 Altered mental status, unspecified; E11.9 Type 2 diabetes mellitus without complications; I10 Essential (primary) hypertension; F25.9 Schizoaffective disorder, unspecified; F03.90 Unspecified dementia, unspecified severity, without behavioral disturbance, psychotic disturbance, mood disturbance, and anxiety; Z51.5 Encounter for palliative care; Z79.899 Other long term (current) drug therapy; Z66 Do not resuscitate

== ENCOUNTER → 2016-11-12 | Outpatient (CLI) | payer OTHER ==
[~2016-11-12] MED LIST changes: +MULT-506 PO
--- NOTE | 2016-11-18 12:21 | CODING QUERY MEDICAL NECESSITY ---
SUPPORTING DIAGNOSIS NEEDED A supporting diagnosis is required for the test/procedure performed on this patient in order for us to be reimbursed by the patient's insurance. Please provide a supporting diagnosis for the following test/procedure listed below next to the test name along with your signature. *If there is no additional diagnosis for this patient that would support the following test/procedure please document that below next to the test/procedure. Test(s)/Procedure(s) that require a supporting diagnosis: * VITAMIN D 25-HYDROXY DIAGNOSIS: * DOS: 11/12/16 Provider Signature: Date: Thank you Soraida Mcdermott Health Information Management Once completed, please kindly fax back to [phone] For questions please call [phone]
== END ==
LOC: C.LABUPBEA 09:29
PROVIDERS: ATTEND Family Medicine
DX: D53.9 Nutritional anemia, unspecified (principal)